=== PATIENT | male | born 2000 | race Caucasian/White ===

== ENCOUNTER → 2023-11-10 14:47 | Outpatient (REF) | payer OTHER, SELFPAY | LOC: RAD 14:47 | PROVIDERS: ATTENDING PHYSICIAN Physician Assistant | DX: R10.30 Lower abdominal pain, unspecified (principal); R45.1 Restlessness and agitation | CPT/HCPCS: 76700 ==

== ENCOUNTER 2023-11-24 23:12 | Inpatient (IN) | payer OTHER, SELFPAY ==
[2023-11-24 19:02] VITALS: BP 149/100
--- NOTE | 2023-11-24 19:56 | ED.GENMED ---
History of Present Illness
General
Chief Complaint: Change in Mental Status
Source: records, family and previous radiology exam
Exam Limitations: non verbal-adult and altered mental status
Time Seen by Provider: 11/24/23 19:43
Nursing documentation reviewed up to this point in time: agreed with
History of Present Illness
History of Present Illness:
23-year-old male presents for evaluation agitation
Is nonverbal has autism which started old one of the newer diabetes/weight loss meds for weight loss he was doing well then developed GI symptoms, or stopped had an outpatient ultrasound because he could not fit in the CAT scan or due to his weight
showed a gallstone apparently saw surgeon and no surgery was scheduled, has been eating, he has been sweating, mom gave him Abilify and Thorazine today to calm him down, also has a fungal infection in his groin possibly a UTI no fevers,
Past History
Past History
ED Past Medical History: Other (Autism)
ED Past Surgical History: None
Social History
Tobacco: Non-smoker
Alcohol: None
Drug: None
Personal: Single
Living: with family
Employment: Not employed
Review of Systems
Review of Systems
Other source history: family
All Other Systems: Not applicable
Constitutional: Reports weight loss; Denies fever
ABD/GI: Reports abdominal pain (??); Denies constipated
Phy Exam
Physical Exam
Physical Exam:
Physical Exam
General: Large statured special-needs male calm walking in the room
Neck: Sweat on his forehead, no tongue bite
Heart: Tachycardic
Lungs: no acute respiratory distress. clear bilaterally
Abdomen: Obese no guarding or reviewed
Neuro: Ambulating nonverbal
Skin:
Psychiatric: Unable to assess
Extremities: no edema.
Course
Orders/Labs/Results
Orders:
Orders
11/24/23 19:52
Urinalysis Reflex To Culture Urgent
Diazepam [Valium] 5 mg PO NOW STA
11/24/23 20:29
Complete Blood Count/With Diff Urgent
Comprehensive Metabolic Panel Urgent
Lipase Urgent
Blood Culture Q30M
AL Source: Blood/Venous
Specimen Description:
11/24/23 20:30
Lactic Acid Urgent
11/24/23 21:04
Blood Culture Q30M
AL Source: Blood/Venous
Specimen Description:
Abnormal Lab Results
11/24/23 11/24/23
20:29 20:30
Plt Count 401 H 10^3/uL
(130-400)
Absolute Monos (auto) 1.1 H 10^3/uL
(0.1-0.6)
Monocytes % 10.3 H %
(1.7-9.3)
Chloride 109 H mmol/L
(98-107)
Carbon Dioxide 18 L mmol/L
(22-30)
Glucose 107 H mg/dl
(70-99)
Lactic Acid 2.4 H mmol/L
(0.7-2.0)
Calcium 10.3 H mg/dl
(8.4-10.2)
Total Bilirubin 1.4 H mg/dl
(0.2-1.3)
AST 65 H U/L
(17-59)
ALT 92 H U/L
(0-50)
11/24/23 20:29
11/24/23 20:29
Vital Signs
Initial and Last Documented VS:
Initial Vital Signs
Temp Pulse Resp BP Pulse Ox
97.5 F 127 22 149/100 100
11/24/23 19:02 11/24/23 19:02 11/24/23 19:02 11/24/23 19:02 11/24/23 19:02
Last Documented Vital Signs
Temp Pulse Resp BP Pulse Ox
97.5 F 127 22 149/100 100
11/24/23 19:02 11/24/23 19:02 11/24/23 19:02 11/24/23 19:02 11/24/23 19:02
MDM/Problems Addressed
Differential Diagnosis Includes:
Infection dehydration medication effect perhaps biliary prep UTI primary psychiatric alert
MDM/Problems Addressed:
Agitation
Chronic conditions affecting care: Psychiatric illness
Acute Exacerbation and/or Progression of Chronic Illness: Psychiatric illness
*Radiology
Radiology exam reviewed: radiology read reviewed
*Pulse Oximetry
Patient hypoxic: no
*Critical Care Note
Total Time (30-74mins, 75-104mins- exclusive of procedures): Not Applicable
Update Note
Update Note:
Update, labs noted including LFTs lactic acid Sohail coffman will try to get a rectal temp and look at his groin rash
Rectal temp 99.9 he is sweaty, do not believe repeating his ultrasound treat management, cultures have been sent, he pulled his IV out, mother states he is not at his baseline, apparently too large for CT scanner
ED Attending Note
-
Portions of this chart may have been created with voice recognition software.� Occasional wrong word or��sound alike� substitutions may have occurred due to the inherent limitations of voice recognition software.
Discharge Plan
Departure
Prescriptions:
No Action
Prozac
7 ml PO DAILY
lorazepam 1 MG tablet
1 mg PO DAILYPRN PRN (Reason: anxiety)
albuterol sulfate [Albuterol Sulfate HFA] 18 GM HFA aerosol inhaler
2 puff inhalation PRN PRN (Reason: as directed)
fluticasone propionate 1 SPRAY spray,suspension
2 spray intranasal DAILYPRN PRN (Reason: as directed)
aripiprazole 2 MG tablet
2 mg PO DAILY
pediatric multivitamin no.17 1 TABLET tablet,chewable
1 tab PO DAILY
doxycycline monohydrate 25 MG/5 ML suspension for reconstitution
100 mg PO Q12 Qty: 280 0RF
Referrals:
Rolando Prieto MD [Family Provider] -
Interventions
Interventions:
*Risk Screen - Suicide Last Done: 11/24/23 19:02
*General Assessment Last Done: 11/24/23 19:02
*Neglect/Abuse Screening Last Done: 11/24/23 19:02
ED- Fall Risk Assessment Last Done: 11/24/23 21:26
ED- Neurological Assessment Last Done: 11/24/23 21:26
ED- Cardiac Assessment Last Done: 11/24/23 21:26
ED Swallowing Screen Last Done: 11/24/23 21:28
Discharge Date and Time
Print Language: [place] CITIZEN
[2023-11-24] MEDS: VALIUM 5 MG PO (19:59)
[2023-11-24 20:35] LABS: % Basophils 1.1 % (0-2); % Eosinophils 0.9 % (0-6); % Immature Granulocytes 0.4 % (0-0.5); % Lymphocytes 30.5 % (20.5-51.1); % Monocytes 10.3 % (1.7-9.3); % Neutrophils 56.8 % (42.2-75.2); Absolute Basophils 0.1 10^3/uL (0-0.2); Absolute Eosinophils 0.1 10^3/uL (0-0.7); Absolute Lymphocytes 3.2 10^3/uL (1.2-3.4); Absolute Monocytes 1.1 10^3/uL (0.1-0.6); Hematocrit 46.2 % (39.0-52.0); Hemoglobin 16.4 g/dL (13.0-18.0); Mean Corp Hgb Conc. 35.5 g/dL (33.0-37.0); Mean Corpuscular Hgb 30.6 pg (27.0-31.0); Mean Corpuscular Volume 86.2 fL (80.0-94.0); Mean Platelet Volume 9.4 fL (7.4-10.4); Nucleated Red Blood Cells % 0 % (-); Platelet Count 401 10^3/uL (130-400); Red Blood Cell Count 5.36 10^6/uL (4.70-6.10); Red Cell Dist. Width 13.6 % (11.5-14.5); White Blood Cell Count 10.5 10^3/uL (4.8-10.8)
[2023-11-24 20:48] LABS: Lactic Acid 2.4 mmol/L (0.7-2.0)
[2023-11-24 20:52] LABS: ALT (SGPT) 92 U/L (0-50); AST (SGOT) 65 U/L (17-59); Albumin 4.8 g/dl (3.5-5.0); Alkaline Phosphatase 79 U/L (38-126); Blood Urea Nitrogen 10 mg/dl (9-20); Calcium 10.3 mg/dl (8.4-10.2); Carbon Dioxide 18 mmol/L (22-30); Chloride 109 mmol/L (98-107); Glucose 107 mg/dl (70-99); Potassium 4.8 mmol/L (3.5-5.1); Sodium 139 mmol/L (135-145); Total Bilirubin 1.4 mg/dl (0.2-1.3); Total Protein 7.8 g/dl (6.3-8.2); eGFR > 60.00
[2023-11-24 21:33] LABS: Lipase 59 U/L (23-300)
--- NOTE | 2023-11-24 22:12 | HPS.HSE ---
Family Physician
-
Family Physician: Rolando Prieto
Chief Complaint
-
Nausea, not eating, diaphoresis, groin rash, agitation
History of Present Illness
23-year-old autistic male who reportedly started weight loss medication Wegovy x 7 doses last dose was 10/28/2023 he then developed GI symptoms of nausea, not eating, diaphoresis. He saw surgery was scheduled for CT but was unable to fit in the CAT
scan machine so had ultrasound showing a gallstone. His mother reported he was very agitated gave him Abilify and his Thorazine today to help calm him down. He normally eats very well but is not eating his safe foods or his snacks. He is also not
been interested in his typical show's and music that he watches. He also has fungal infection in his groin which she was prescribed Diflucan 150 mg daily along with topical clotrimazole. His mother states he finished 1 week of Augmentin due to
UTI. She reports normally when he has a UTI he avoids going to the bathroom and asked how she knows past medical history of nonverbal autism, sensory disorder, seizures, asthma, pneumonia, gastroenteritis, anxiety
Medical History
Past Medical History
Past Medical History: Reports Other
Additional Past Medical History:
Severe nonverbal autism/ sensory disorder
anxiety
seizures
asthma
pneumonia
gastroenteritis,
Morbid obesity
Past Surgical History: Reports Other
Additional Past Surgical History:
Tonsillectomy/adenoidectomy
Social History
Tobacco: Non-smoker
Alcohol: None
Drug: None
Personal:
Living: With Family
Employment: Disabled
Family History
Family History: Not pertinent
Allergies / Home Medications
Allergies reflects when Allergies were last updated in [facility].
Home Medications with original date entered in [facility]
Allergy/Medication List:
Allergies
Allergy/AdvReac Type Severity Reaction Status Date / Time
seasonal and food sensitivity Allergy Pharmacy Uncoded 02/03/19 14:11
to Review
Home Medications
albuterol sulfate 90 mcg/actuation aerosol inhaler 1 puff inhalation R Q4HPRN PRN sob/wheezing 11/24/23
aripiprazole 30 mg tablet 30 mg PO DAILY 11/24/23
chlorpromazine 25 mg tablet 25 mg PO TIDPRN PRN agitation/anxiety 11/24/23
fluconazole 150 mg tablet 150 mg PO WEEKLY 11/24/23
fluoxetine 20 mg/5 mL (4 mg/mL) oral solution 20 mg PO HS 11/24/23
magnesium 250 mg tablet 250 mg PO HS 11/24/23
melatonin 3 mg tablet 6 mg PO HS 11/24/23
semaglutide (weight loss) 0.25 mg/0.5 mL subcutaneous pen injector (Wegovy) 0.25 mg SC WEEKLY 11/24/23
Review of Systems
-
History Source: Family (Mother at bedside)
A 12 point ROS was completed and negative except as noted: Yes
Constitutional: Reports Fever, Chills and Other (Diaphoresis, agitation)
Respiratory: Denies Cough
Cardiac: Reports Diaphoresis
Abdomen/GI: Reports Nausea; Denies Vomiting or Diarrhea
: Denies Dysuria, Frequency or Incontinence
Musculoskeletal: Denies Joint Pain or Edema
Skin: Reports Rash (Fungal groin rash left and right extending to thighs)
Neurological: Denies Dizzy
Endocrine: Reports No Symptoms
Hematologic/Lymphatic: Reports No Symptoms
Psych: Reports Other (Agitated)
Physical Exam
Vital Signs
Vital Signs
Temp Pulse Resp BP Pulse Ox
99.9 F 127 22 149/100 100
11/24/23 22:00 11/24/23 19:02 11/24/23 19:02 11/24/23 19:02 11/24/23 19:02
Physical Exam
Cardiac: S1/S2 and Tachycardia; No Murmur, Rub or Gallop
GI: Normal Bowel Sounds and Other (Protuberant abdomen does not withdrawal to pain)
Rectal: Deferred by Provider
Genito-urinary: Deferred by me
Musculoskeletal: No Clubbing, No Cyanosis and No Edema
Skin: Rash (Fungal groin rash left and right extending to thighs)
Neuro: Awake (Agitated pacing room signing to his mother he wants a car ride) and No Sensory Deficits
Psych: Agitated
Laboratory Results
-
11/24/23 20:29
11/24/23 20:29
Laboratory Results
Lactic Acid 2.4 mmol/L (0.7-2.0) H 11/24/23 20:30
Total Bilirubin 1.4 mg/dl (0.2-1.3) H 11/24/23 20:29
AST 65 U/L (17-59) H 11/24/23 20:29
ALT 92 U/L (0-50) H 11/24/23 20:29
Alkaline Phosphatase 79 U/L (38-126) 11/24/23 20:29
Lipase 59 U/L (23-300) 11/24/23 20:29
Impression/Plan
-
Impression/plan:
Admit to IMU
#Acute biliary colic with acute transaminitis
-WBC 10.5, temp 99.9 F, HR 127, 149/100
-Consult surgery
-IV pain control with morphine
-IV Zofran
-IV vancomycin, IV Zosyn
-IV NSS 1 L given in ER, IV NSS 100 cc/h
-Follow CBC, CMP, blood cultures x 2, lactic acid 2.4
-Check UA AUDITOR SUPERVISOR
-Will check abdominal ultrasound in a.m.
Abdominal ultrasound 11/10/2023 hepatomegaly 19 cm, cholelithiasis no acute cholecystitis. Gallbladder was distended with fluid showing small shadowing calculus approximately 8 mm in diameter
#Severe Nonverbal autism
Patient only signed with mother he is unable to communicate any needs with staff
-Mother to stay with patient
-IM Haldol given 5 mg due to patient agitation unable to get IV at present time
-Consult Psychiatry
-Continue Abilify, Prozac
-Patient takes as needed Thorazine 25 mg
-Mother noted has taken oral Ativan with no results
#Hypertension likely secondary to agitation/pain
149/100
Will give pain control, IV Haldol and monitor
#Fungal groin rash to thigh right > ;left
-May continue Diflucan 150 milligram x 7 days patient started on 11/22/2023
-Apply topical antifungal
#Chronic lactose/gluten intolerance
-Mother does not allow red dye or artificial sweeteners
#Morbidly obese�BMI 62.3(weight 422 lbsper mother height estimate 5.9)
-Patient recently started Wegovy 0.25 mg x 7 doses did stop on 10/28/2023 due to nausea, not eating
DVT prophylaxis
Subcu Lovenox
Full code
[2023-11-24] MEDS: HALDOL 5 MG IM (22:33)
--- NOTE | 2023-11-24 23:05 | W.PN.UPDATE ---
Update Note
Progress Note Update
I could not get any information from the patient as he is autistic and restless
Information gathered by chart review and speaking with mother and the ER staff.
This note serves as an addendum to the H&P by hand molder KAROLINE Lluvia MARTINO
HPI
23M Morbidly obese, mentally disable due to severe autism BIB mother due to AMS from normal routine , agitation and restlessness. Not resposne to Thorazine and Ativan at home per Mother
Recently on Wegovy ( GLP2) for 2 weeks till 10/27 when he developed GI symtoms.
He had US on 11/09 noted Hepatomegaly and cholelithiasis. No findings highly suspicious for acute cholecystitis.
Currently in PO Diflucan and Clotrimazole topical for extensive Rt> Lt groin fungal dermattis for last 2 days
At ER
low grade T
tachycardic
Normotensive
PMHX: Autism, Lactose intolerance
PSHX
None
SHX
Tobacco: Non-smoker
Alcohol: None
Drug: None
Personal: Single
Living: with family
Reviewed VS: 99.9 tachycardic 127 BP 150/100 RR2 POx 100
PE
Gen: morbidly obese , restless , diaphoretic
HEENT: anicteric
Neck: supple
Lungs: limited exam due to restlessness
Cor: tachycardic
Abdomen: obese
TRUCKSMITH: alert , anxious , non verbal
MS: no edema
Psych: limited exam
Data
nl WCC
Plt 401
Cl 109
CO2 18
Cr 1.2
eGFR > 60
LA 2.4
Ca 10.3
TB 1.4
AST 65
ALT 92
Pending UA and pending CXR due to restlessness
BCx sent
11/10/23 US Abdomen Complete/Uppe
1. Suboptimal imaging secondary to patient's inability to remain motionless for the procedure.
2. Allowing for this, no acute intra-abdominal process identified sonographically.
3. Hepatomegaly.
4. Cholelithiasis. No findings highly suspicious for acute cholecystitis.
NO PRIOR hospitalist admission:
ASSESSMENT & PLAN
Loss peripheral line ; ripped off
- another attempt too place peripheral line at ER
Agitated and restlessness s/p IM Haldol 5 mg at ER and IM morphine x1
Unable to place lines due to restlessness yet
Mental disability due to severe autism
- IV Haldol PRN
- IV Ativan PRN - hold for excessive sedation
- Mother to stay with patient in private room
- Psych consult
AMS and restlessness
VERY BROAD DDx DUE TO LIMITED W/U : acute infection ( UTI, PNA, Bilairy infection) vs constipation vs metabolic vs drug interaction
- BCx, UCx, CXR when able
- Peripheral lines when able
- empiric IV Vanco and Zosyn
Abn LFTs , Cholelithiasis. No findings highly suspicious for acute cholecystitis. per 11/10/23 US
- f/u LFts
- repeat US in AM
Morbidly obese
DVT Px: LMWH
Code: Full code
IMU
[2023-11-24] MEDS: MORPHINE SULFATE 4 MG IM (23:27)
[2023-11-25 00:35] VITALS: BP 150/90
[2023-11-25 00:46] VITALS: BP 132/81
[2023-11-25 01:04] VITALS: BMI 68.3
[2023-11-25 01:33] LABS: % Basophils 0.8 % (0-2); % Eosinophils 0.1 % (0-6); % Immature Granulocytes 0.4 % (0-0.5); % Lymphocytes 17.3 % (20.5-51.1); % Monocytes 11.5 % (1.7-9.3); % Neutrophils 69.9 % (42.2-75.2); Absolute Basophils 0.1 10^3/uL (0-0.2); Absolute Immature Granulocytes 0.1 10^3/uL (0-0.05); Absolute Lymphocytes 2.3 10^3/uL (1.2-3.4); Absolute Monocytes 1.5 10^3/uL (0.1-0.6); Absolute Neutrophils 9.3 10^3/uL (1.4-6.5); Hemoglobin 16.1 g/dL (13.0-18.0); Mean Corp Hgb Conc. 35.8 g/dL (33.0-37.0); Mean Corpuscular Hgb 30.7 pg (27.0-31.0); Mean Corpuscular Volume 85.7 fL (80.0-94.0); Mean Platelet Volume 9.5 fL (7.4-10.4); Nucleated Red Blood Cells % 0 % (-); Platelet Count 376 10^3/uL (130-400); Red Blood Cell Count 5.25 10^6/uL (4.70-6.10); Red Cell Dist. Width 13.5 % (11.5-14.5); White Blood Cell Count 13.4 10^3/uL (4.8-10.8)
[2023-11-25] MEDS: HALDOL 1 MG IM (01:52)
[2023-11-25 01:57] LABS: ALT (SGPT) 91 U/L (0-50); AST (SGOT) 57 U/L (17-59); Albumin 4.5 g/dl (3.5-5.0); Alkaline Phosphatase 73 U/L (38-126); Blood Urea Nitrogen 10 mg/dl (9-20); Calcium 10.2 mg/dl (8.4-10.2); Carbon Dioxide 18 mmol/L (22-30); Chloride 112 mmol/L (98-107); Estimated Creatinine Clearance > 125 ml/min; Glucose 85 mg/dl (70-99); HDL Cholesterol 45 mg/dl; LDL Cholesterol, Calculated 83 mg/dl; Potassium 4.2 mmol/L (3.5-5.1); Sodium 143 mmol/L (135-145); Total Bilirubin 1.3 mg/dl (0.2-1.3); Total Cholesterol 143 mg/dl (50-199); Total Protein 7.5 g/dl (6.3-8.2); Triglyceride 77 mg/dl (10-149); Very Low Density Lipoprotein 15 mg/dl (0-30); eGFR > 60.00
[2023-11-25 01:59] LABS: Lactic Acid 1.7 mmol/L (0.7-2.0)
[2023-11-25] MEDS: ATIVAN 1 MG IM (02:33)
[2023-11-25] MEDS: NSS (PRESERVATIVE FREE) 0.5 ML IV ×2 (02:37→06:13)
[2023-11-25 02:39] VITALS: BP 152/94
[2023-11-25 03:19] LABS: Urine Albumin Trace (Neg - Trace); Urine Bilirubin 1+ (Negative); Urine Character Slightly Cloudy (Clear); Urine Color Yellow; Urine Glucose Negative (Negative); Urine Ketone 2+ (Negative); Urine Leukocyte Trace (Negative); Urine Nitrite Negative (Negative); Urine Occult Blood Negative (Negative); Urine Specific Gravity 1.025 (<1.030); Urine Urobilinogen 1+ (Neg - 1+)
--- NOTE | 2023-11-25 03:30 | PTCARENOTE ---
[id number]: Patient received in ICU rm [id number] from ED RN via stretcher. The patient is awake and restless. Follows very simple commands with pt's mother, Vera, assistance. The patient is nonverbal. Patient assisted staff transferring from the stretcher
to BED. Sinus tachy on the monitor.Pt's diaphoretic. Afebrile. Pt's removing his monitor leads. Haldol 1 mg IM administered. IV placement by IV team. AM labs drawn and sent. The patient removed IV. So ART Freitas made aware. IV placement attempted
without success. The patient remained restless and attempting to get OOB. Pt's mother assisting to calm the patient down. Multiple RNs at the bedside for assistance. IM Ativan ordered and administered. Attempted to get EKG without success. Pt
continued to remove his leads. Diminished breath sounds. Hypoactive bowel sounds. The patient ambulated with his mother's assistance to the bathroom. ART Sanabria made aware of lack of IV site for ordered medication administration. Pt has
excoriation/MASD/fungal rash to bilateral inner thighs and groin areas. The pt's mother has at home clotrimazole cream. PRINTING PLATE MAKER made aware. Nystatin ointment and desenex ordered.
[2023-11-25 03:32] LABS: Urine Amorphous Seen
[2023-11-25 03:33] LABS: Urine Bacteria Many (Negative); Urine Red Blood Cell 0-2 /HPF (0-2)
[2023-11-25 04:01] VITALS: BMI 68.3
--- NOTE | 2023-11-25 04:32 | PTCARENOTE ---
Patient is drowsy, but easily arousable. Sinus tachy on the monitor. Pt's mother is at the bedside.
[2023-11-25] MEDS: HALDOL 5 MG IM (05:05)
[2023-11-25] MEDS: ATIVAN 2 MG IM (06:13)
[2023-11-25] MEDS: RISPERDAL M-TAB (ORALLY DISINTEGRATING) 1 MG PO (06:17)
[2023-11-25] MEDS: MIRALAX 17 GRAMS PO (06:50)
--- NOTE | 2023-11-25 07:21 | PTCARENOTE ---
[id number]: Patient is awake and OOB naked. Staff and pt's mother at the bedside. Ambulated with the patient to the bathroom. Pt wants to shower. Assisted the patient back to bed. Pt remains restless and attempting to get OOB. SHELL MACHINE OPERATOR paged to the
bedside. ART Castillo at the bedside. Risperdal m-tab (oral disintegrating) 1 mg and ativan 2 mg IM ordered ans administered. Patient spoke to WAFER ABRADING MACHINE TENDER over the phone regarding @ home medication. The patient removed all monitoring devices. SHELL MACHINE OPERATOR made
aware. Pt remains without an IV. Miralax administered. Pt's diet changed to regular per SHELL MACHINE OPERATOR.
--- NOTE | 2023-11-25 07:30 | PTCARENOTE ---
Assumed care of patient. Spoke w/ pt's mom at length. Pt is currently off monitor (due to pt pulling off) and no IV site (due to pt pulling out). Diet changed to dairy free/gluten free per mother's request. Unable to fully assess pt due to
restlessness and mother asked that pt not be disturbed. Axillary temp obtained. No other VS obtained. Pt appears comfortable and sleeping intermittently. Respirations 18....skin is pink and warm. Call pinto within reach for mom. Room
dark...safe environment confirmed...attempted to decrease noise stimuli. Will continue to monitor and provide emotional support.
[2023-11-25] MEDS: MIRALAX PO (08:53)
--- NOTE | 2023-11-25 08:59 | CS.PSYCHR ---
Consult Summary - Psychiatry
-
Psychiatry consult for management of agitation. 23 yo male with nonverbal autism and anxiety admitted 11/24/2023 for nausea, not eating, and diaphoresis. Gallstone seen on imaging. Also was recently on Wegovy for weight loss. Needs treatment for UTI.
Agitation was extremely severe last night resulting in need for numerous PRNs including Haldol, Ativan, Morphine, SL Risperdal and Valium (see chart for dosages). Mom is at bedside and describes him as a 'aury bear toddler' at baseline. Case
discussed with nursing. Patient has been calm so far this morning but is now starting to get agitated again. Very focused on going on a car ride with his mom who he signs with.
Qtc 430 today
MSE- obese, nonverbal, signing he wants a car ride to his mom. Restless, starting to get increasingly agitated. nude but covered with bedsheets
Past psych- non verbal autism and anxiety, sensory disorder. He sees a psychiatrist at [facility]. he is prescribed abilify 30mg daily, prozac 20mg HS, melatonin 6mg HS and thorazine 25mg TID PRN agitation/anxiety. Ativan was stopped 4-5
months ago due to poor response. Trial of Risperdal resulted in increased agitation and heart rate
PMH- UTI, fungal groin infection, obesity, seizures, asthma, h/o PNA, gastroenteritis
Social- lives with family
A/P- 23 yo male with history noted above. Agitation likely related to pain/discomfort and inability to verbalize. Will do a now trial of Zydis 5mg to see how he responds and then adjust PRN regimen. Mom will stay with patient which will help with
agitation/redirection. If high doses of antipsychotic medications are needed, will continue EKG Qtc monitoring. Psychiatry will follow.
--- NOTE | 2023-11-25 09:18 | W.PN.HOSP.TC ---
Today's Communication/Plan
-
see bold
Assessment / Plan
Assessment / Plan
HPI: 23-year-old autistic male who reportedly started weight loss medication Wegovy x 7 doses last dose was 10/28/2023 he then developed GI symptoms of nausea, not eating, diaphoresis. He saw surgery was scheduled for CT but was unable to fit in the
CAT scan machine so had ultrasound showing a gallstone. His mother reported he was very agitated gave him Abilify and his Thorazine today to help calm him down. He normally eats very well but is not eating his safe foods or his snacks. He is also
not been interested in his typical show's and music that he watches. He also has fungal infection in his groin which she was prescribed Diflucan 150 mg daily along with topical clotrimazole. His mother states he finished 1 week of Augmentin due to
UTI. She reports normally when he has a UTI he avoids going to the bathroom and asked how she knows past medical history of nonverbal autism, sensory disorder, seizures, asthma, pneumonia, gastroenteritis, anxiety
#Acute biliary colic with acute transaminitis
Patient with low-grade fever, Tmax 99.9, with a leukocytosis today
He is refusing IV access
Treat with cefdinir and Flagyl for now
Repeat ultrasound ordered, general surgery consulted
Abdominal ultrasound 11/10/2023 hepatomegaly 19 cm, cholelithiasis no acute cholecystitis. Gallbladder was distended with fluid showing small shadowing calculus approximately 8 mm in diameter
#1 out of 2 blood cultures growing gram-positive cocci
Possibly contaminant
Start oral doxycycline, follow-up on blood cultures
#Severe Nonverbal autism
Presenting symptom was agitation
Patient only signed with mother he is unable to communicate any needs with staff
Appreciate psychiatry input, continue medication adjustments as per psychiatry
# Elevated blood pressure likely secondary to agitation/pain
Continue medication adjustments as per psychiatry
#Fungal groin rash to thigh right > ;left
-May continue Diflucan 150 milligram x 7 days patient started on 11/22/2023
-Apply topical antifungal
#Chronic lactose/gluten intolerance
-Mother does not allow red dye or artificial sweeteners
#Morbidly obese�BMI 62.3(weight 422 lbsper mother height estimate 5.9)
-Patient recently started Wegovy 0.25 mg x 7 doses did stop on 10/28/2023 due to nausea, not eating
DVT prophylaxis�subcu Lovenox
Full code
Total time spent to see the patient on the floor, examine the patient, review data and lab results, discuss treatment plan with patient, nursing staff around 55 minutes.
Physical Exam
General: Morbidly obese, no acute distress
HEENT: Normocephalic, Atraumatic,
Respiratory: Clear to Auscultation bilaterally
Cardiac: Normal S1/S2, Regular Rate and Rhythm
GI: Soft, Nontender, Nondistended, Normal Bowel Sounds
Extremities: No Clubbing, Cyanosis, or Edema
Psych: Severe intermittent agitation
Derm: No Visible lesions
Anticipated Discharge: > 48 hours
Subjective/Interval History
-
Date of Service: November 25, 2023
Patient has been up all night per nursing staff. He finally fell asleep. No fever, no vomiting.
Objective Data
-
Labs:
Laboratory Results
11/25/23
01:23
WBC 13.4 H
Hgb 16.1
Hct 45.0
Plt Count 376
Sodium 143
Potassium 4.2
Chloride 112 H
Carbon Dioxide 18 L
BUN 10
Creatinine 1.4 H
Glucose 85
Calcium 10.2
Total Bilirubin 1.3
AST 57
ALT 91 H
Alkaline Phosphatase 73
Vital Signs:
Vital Signs
Temp Pulse Resp BP Pulse Ox
98.5 F 133 25 152/94 100
11/25/23 07:18 11/25/23 05:30 11/25/23 05:30 11/25/23 02:39 11/25/23 03:30
[2023-11-25] MEDS: DESENEX/MITRAZOL/ZEASORB 1 APPLIC TOPICAL (09:44)
[2023-11-25] MEDS: MYCOSTATIN CREAM 1 APPLIC TOPICAL ×2 (09:45→20:55)
--- NOTE | 2023-11-25 10:15 | PTCARENOTE ---
Pt increasingly agitated per mom. Zydis SL given without issue after pt seen by . ECG done prior to administration of med.
[2023-11-25] MEDS: ZYPREXA ZYDIS (ORALLY DISINTEGRATING) 5 MG PO ×2 (10:16→15:28)
--- NOTE | 2023-11-25 11:00 | PTCARENOTE ---
Pt currently sleeping after SL zydis... made aware.
--- NOTE | 2023-11-25 12:00 | PTCARENOTE ---
Spoke w/ about plan of care. Abx changed to po. Pt sleeping w/o issue at present. Will continue to monitor.
[2023-11-25] MEDS: OMNICEF 300 MG PO (12:33)
[2023-11-25] MEDS: FLAGYL 500 MG PO (12:35)
[2023-11-25 14:05] VITALS: BMI 68.3
[2023-11-25] MEDS: ATIVAN 4 MG IM (14:17)
--- NOTE | 2023-11-25 15:30 | PTCARENOTE ---
Ativan IM and SL zyprexa given for agitation. Mom is concerned w/ pt's lack of sleeping and debating taking him home. MD aware. Continuing to provide emotional support.
--- NOTE | 2023-11-25 16:30 | PTCARENOTE ---
Pt sleeping w/ mom at bedside w/o issue.
[2023-11-25] MEDS: FLAGYL PO ×2 (20:52→20:55)
[2023-11-25] MEDS: DESENEX/MITRAZOL/ZEASORB TOPICAL ×2 (20:52→20:55)
[2023-11-25] MEDS: VIBRAMYCIN 100 MG PO (20:53)
[2023-11-25] MEDS: OMNICEF PO ×2 (20:54→20:55)
--- NOTE | 2023-11-25 23:45 | PTCARENOTE ---
1899: Assumed care of the patient. Pt noted to be asleep. RR 16. Pt's not on monitor due to leads removal. Pt's mother at the bedside.
2049: Pt remains asleep. Pt's mother refused medications as to allow the patient to sleep. Teaching provided on antibiotic needs. Clear breath sounds on assessment. + BS. Pt's mother attempted to administer pt's Vibramycin, but the patient spat the
medication out.
2229: Pt's mother declined the pt's medication as to allow him to sleep at this time. Pt's awake and restless but settles easily.
--- NOTE | 2023-11-26 00:57 | PTCARENOTE ---
Pt reassessed. Patient remains asleep. RR 14 with even chest rise. No labored breathing. Pt's mother is at the bedside.
[2023-11-26] MEDS: FLAGYL 500 MG PO (03:21)
[2023-11-26 03:23] VITALS: BP 135/82
[2023-11-26] MEDS: ZYPREXA ZYDIS (ORALLY DISINTEGRATING) 5 MG PO (04:02)
[2023-11-26] MEDS: ATIVAN 4 MG IM (04:11)
[2023-11-26] MEDS: NSS (PRESERVATIVE FREE) 0.5 ML IV (04:12)
[2023-11-26 04:23] VITALS: BMI 62.2
[2023-11-26 04:24] LABS: ALT (SGPT) 86 U/L (0-50); AST (SGOT) 86 U/L (17-59); Albumin 4.1 g/dl (3.5-5.0); Alkaline Phosphatase 64 U/L (38-126); Blood Urea Nitrogen 9 mg/dl (9-20); Carbon Dioxide 21 mmol/L (22-30); Chloride 109 mmol/L (98-107); Estimated Creatinine Clearance > 125 ml/min; Glucose 83 mg/dl (70-99); Magnesium 2.1 mg/dl (1.6-2.3); Potassium 4.1 mmol/L (3.5-5.1); Sodium 141 mmol/L (135-145); Total Bilirubin 2.2 mg/dl (0.2-1.3); Total Protein 6.8 g/dl (6.3-8.2); eGFR > 60.00
--- NOTE | 2023-11-26 04:57 | PTCARENOTE ---
Patient is awake and restless. Patient ambulated to the bathroom with mother x3 without voiding. Pt is asking for food. NPO status explained to the mother for abdominal ultrasound. The patient sat on the couch then back to bed, then the bathroom.
Pt's mother asked for prn zyprexa. Zyprexa administered without effect. PRN ativan administered IM. The patient settled. Pt tolerated lab draw but was restless. Chemistry sent. Unable to draw remainder of the labs. Scheduled medication administered.
The patient's mother voiced concerns regarding the pt's diagnosis and reason for behavior. Pt's mother stated that 'I just want to know what is causing this. I feel like no one is giving me a definitive answer. Is it UTI or not? I just want
answers.' Teaching provided on UTI and prevention methods. Explained to the patient's mother current treatment plans with ordered antibiotics. Pt's mother encouraged to encourage the patient to take scheduled abx while when they are due. The mother
is agreeable. supportive measures provided. Bed in the lowest position. Safety measures remain.
[2023-11-26] MEDS: HALDOL 5 MG IM (05:46)
--- NOTE | 2023-11-26 06:24 | PTCARENOTE ---
[id number]: The patient's mother rang due to pt being restless and getting OOB. Pt's mother asked for prn medication to calm pt. Explained to the pt's mother that Haldol is the medication available to administer and she's agreeable. The patient
remained restless post medication administration. We ambulated the bathroom 4 times and back to bed.
[2023-11-26] MEDS: MIRALAX PO (07:44)
--- NOTE | 2023-11-26 07:45 | PTCARENOTE ---
Pt mildly agitated but verbally directable by mom and staff. U/S abdomen completed this am. Pt agreeable to take oral omnicef. Unable to fully assess due to pt compliance. Call pinto within reach. Emotional support provided. Will continue to
monitor.
[2023-11-26] MEDS: DESENEX/MITRAZOL/ZEASORB 1 APPLIC TOPICAL (07:50)
[2023-11-26] MEDS: MYCOSTATIN CREAM 1 APPLIC TOPICAL (07:51)
[2023-11-26] MEDS: VIBRAMYCIN PO (07:52)
[2023-11-26] MEDS: OMNICEF 300 MG PO (07:52)
--- NOTE | 2023-11-26 09:15 | W.PN.HOSP.TC ---
Today's Communication/Plan
-
Discharge today
Assessment / Plan
Assessment / Plan
HPI: 23-year-old autistic male who reportedly started weight loss medication Wegovy x 7 doses last dose was 10/28/2023 he then developed GI symptoms of nausea, not eating, diaphoresis. He saw surgery was scheduled for CT but was unable to fit in the
CAT scan machine so had ultrasound showing a gallstone. His mother reported he was very agitated gave him Abilify and his Thorazine today to help calm him down. He normally eats very well but is not eating his safe foods or his snacks. He is also
not been interested in his typical show's and music that he watches. He also has fungal infection in his groin which she was prescribed Diflucan 150 mg daily along with topical clotrimazole. His mother states he finished 1 week of Augmentin due to
UTI. She reports normally when he has a UTI he avoids going to the bathroom and asked how she knows past medical history of nonverbal autism, sensory disorder, seizures, asthma, pneumonia, gastroenteritis, anxiety
# Cholelithiasis with mildly elevated liver function test
Patient with low-grade fever, Tmax 99.9, with a leukocytosis 11/24
Abdominal ultrasound 11/25 negative for cholecystitis
Discontinue cefdinir/Flagyl
Medically stable for discharge
Follow-up with PCP in 1 week
#1 out of 2 blood cultures contaminated
Stop doxycycline
#Severe Nonverbal autism
Presenting symptom was agitation
Patient only signed with mother he is unable to communicate any needs with staff
Appreciate psychiatry input, continue medication adjustments as per psychiatry
Psychiatry recommends resuming home medications upon discharge, follow-up with his usual psychiatrist in 2-3 days
# Elevated blood pressure likely secondary to agitation/pain
Improved, blood pressure 135/82 this morning
#Fungal groin rash to thigh right > ;left
-May continue Diflucan 150 milligram x 7 days patient started on 11/22/2023
-Apply topical antifungal -prescription sent
#Chronic lactose/gluten intolerance
-Mother does not allow red dye or artificial sweeteners
#Morbidly obese�BMI 62.3(weight 422 lbsper mother height estimate 5.9)
-Patient recently started Wegovy 0.25 mg x 7 doses did stop on 10/28/2023 due to nausea, not eating
DVT prophylaxis�subcu Lovenox
Full code
Physical Exam
General: Morbidly obese, no acute distress
HEENT: Normocephalic, Atraumatic,
Respiratory: Clear to Auscultation bilaterally
Cardiac: Normal S1/S2, Regular Rate and Rhythm
GI: Soft, Nontender, Nondistended, Normal Bowel Sounds
Extremities: No Clubbing, Cyanosis, or Edema
Psych: Severe intermittent agitation
Derm: No Visible lesions
Anticipated Discharge: Today
Subjective/Interval History
-
Date of Service: November 26, 2023
Patient currently sleeping. No fever, no vomiting.
Objective Data
-
Labs:
Laboratory Results
11/26/23 11/26/23
03:51 06:00
WBC Pending
Hgb Pending
Hct Pending
Plt Count Pending
Sodium 141
Potassium 4.1
Chloride 109 H
Carbon Dioxide 21 L
BUN 9
Creatinine 0.9
Glucose 83
Calcium 10.0
Total Bilirubin 2.2 H D
AST 86 H
ALT 86 H
Alkaline Phosphatase 64
Vital Signs:
Vital Signs
Temp Pulse Resp BP Pulse Ox
98.6 F 135 27 135/82 100
11/26/23 07:30 11/25/23 05:35 11/25/23 05:35 11/26/23 03:23 11/25/23 03:30
I&O
06/22/24 06/23/24 06/24/24
06:59 06:59 06:59
Intake Total 960 / 960
Output Total 300 / 300
Balance 660 / 660
--- NOTE | 2023-11-26 11:21 | W.DCSUMMARY ---
Discharge Summary
Discharge Data
Date of Admission: 11/24/23
Date of Discharge: 11/26/23
-
Pending Results: No
Hospital Course
Discharge diagnosis:
Cholelithiasis with mildly elevated liver function test
Contaminated blood cultures
Severe nonverbal autism with agitation
Elevated blood pressure due to agitation
Fungal groin rash
Chronic lactose intolerance
Morbidly obese, with a body mass index of 62.3
Consults: Psychiatry
Abd US:
1. Cholelithiasis.
2. No secondary sonographic findings to suggest acute cholecystitis.
3. No bile duct dilatation.
4. Hepatic steatosis.
Hospital course:
23-year-old male with a past medical history of morbid obesity, severe nonverbal autism, lactose intolerance, and cholelithiasis was brought in by his mother for severe agitation. Patient was found to have mildly elevated LFTs, AST was 65, ALT 92.
He did receive cefdinir and Flagyl. Repeat ultrasound shows cholelithiasis, no acute cholecystitis. His antibiotics were discontinued. His LFTs were trended, and remained about the same.
Patient used to be on Wegovy, but stopped on 10/28/2023 due to GI symptoms. It is unclear if he actually has abdominal pain. He appeared comfortable while in the hospital.
Patient was seen in conjunction with psychiatry for his severe agitation. He received Ativan 4 mg IM prn, and Zyprexa 5 mg prn for his agitation. His agitation improved. Psychiatry recommends he continue his current home medications upon
discharge.
Patient had contaminated blood cultures. 1 out of 2 bottles grew out coag negative staph.
Patient had a fungal rash in his groin upon admission. He is on fluconazole 150 mg p.o. weekly. Miconazole powder was added.
Patient's agitation improved, and his mother wanted to take him home. He is discharged home in stable condition. He needs to follow-up with psychiatry in the office in 2-3 days, and his primary care doctor in 1 week.
Disposition: Home self-care
Discharge planning: Required 38 minutes
Discharge Plan
-
Patient Disposition: Home (Routine Discharge)
Discharge Diagnosis/Procedures: Agitation, cholelithiasis, mildly elevated liver function test, contaminated blood cultures, severe nonverbal autism, elevated blood pressure due to agitation
Condition: Fair
Diet: Low Fat and Low Cholesterol
Activity: As tolerated
Activity Restrictions/Additional Instructions:
Please follow-up with your psychiatrist in 2-3 days.
Follow-up with your primary care doctor in 1 week.
Referrals:
Rolando Prieto MD [Family Provider] - in one week
Prescriptions:
New
miconazole nitrate [Miconazorb AF] 2 % Powder
1 applic topical BID 7 Days Qty: 85 0RF
Continued
fluoxetine 20 mg/5 mL (4 mg/mL) solution
20 mg PO HS
fluconazole 150 mg tablet
150 mg PO WEEKLY
melatonin 3 mg Tablet
6 mg PO HS
chlorpromazine 25 mg tablet
25 mg PO TIDPRN PRN (Reason: agitation/anxiety)
magnesium 250 mg Tablet
250 mg PO HS
albuterol sulfate 90 mcg/actuation HFA aerosol inhaler
1 puff INHALATION R Q4HPRN PRN (Reason: sob/wheezing)
aripiprazole 30 mg tablet
30 mg PO DAILY
Discontinued
Wegovy 0.25 mg/0.5 mL pen injector
0.25 mg SC WEEKLY
Discharge Orders:
Discharge Patient (As Directed); Ordered 11/26/23
Ordered By: Francois Saenz
Discharge Date and Time
Discharge Date/Time: 11/26/23 11:53
Print Language: NAURUAN
--- NOTE | 2023-11-26 11:45 | PTCARENOTE ---
D/C instructions reviewed w/ pt's mother. All questions answered. Pt to d/c to home w/ mom.
== END 2023-11-26 11:53 | disposition home or self-care (01) | DRG 445 ==
LOC: ICU 23:12
PROVIDERS: Clinical Nurse Specialist Family Health; ADMITTING PHYSICIAN Internal Medicine; ATTENDING PHYSICIAN Family Medicine; CONSULT PHYSICIAN Psychiatry & Neurology Psychiatry; EMERGENCY PHYSICIAN Emergency Medicine; FAMILY PHYSICIAN Family Medicine
DX: K80.20 Calculus of gallbladder without cholecystitis without obstruction (principal); F84.0 Autistic disorder; Z68.44 Body mass index [BMI] 60.0-69.9, adult; E66.01 Morbid (severe) obesity due to excess calories; E73.9 Lactose intolerance, unspecified; B35.6 Tinea cruris
CPT/HCPCS: 51798; 76700; 80053; 80061; 81003; 81015; 83605; 83690; 83735; 85025; 87040; 87086; 87150; 87205; 93005; 96372; 99284

== ENCOUNTER 2024-10-08 08:18 | Inpatient (IN) | payer OTHER, SELFPAY ==
[2024-10-07] MEDS: SAPHRIS 10 MG SL (16:46)
[2024-10-07] MEDS: HALDOL 5 MG IM (16:52)
--- NOTE | 2024-10-07 17:14 | ED.GENMED ---
History of Present Illness
General
Chief Complaint: Anxiety
Source: family (Mom and dad were at the bedside) and ambulance crew
Time Seen by Provider: 10/07/24 16:43
Nursing documentation reviewed up to this point in time: agreed with
History of Present Illness
History of Present Illness:
The patient is a morbidly obese 24-year-old nonverbal autistic man who lives with his mother who was brought in by paramedics after being acutely agitated and violent today with his mother at home. Mom reports that over the last week, he seems more
agitated and is not doing his normally scheduled activities such as showering. Mom reports he generally likes to take car rides but does not want to go into the car. Mom reports that he generally is cooperative and calm, so him being agitated and
violent today is highly unusual. She reports he gets this way when something is 'wrong' and hurting him. Mom reports that the patient has a history of a gallstone and urinary tract infections. She is worried there is some going on causing him to
act this way. Unfortunately, patient is unable to provide any history. He arrives extremely agitated and thrashing around. Mom reports that he does not really respond to Ativan. She reports that he takes a large amount of sedation to calm him
down. She reports he did not fall down today or hurt himself as far she knows. Mom reports that the only symptom she has noticed is constipation. Mom reports he had a small bowel movement earlier today. She reports he had a normal bowel meant
about 2 to 3 days ago. She denies any vomiting or fever.
Past History
Past History
ED Past Medical History: Other (Autism, nonverbal) and Other (Binge eating disorder)
ED Past Surgical History: Tonsilectomy
Social History
Tobacco: Non-smoker
Alcohol: None
Drug: None
Personal: Single
Living: with family
Employment: Not employed
Family History
Family History: Other
Review of Systems
Review of Systems
Allergies reviewed?: Yes
Unable to obtain full review of systems at this time due to: non-verbal
Other source history: family
All Other Systems: Not applicable
Phy Exam
Physical Exam
Physical Exam:
Physical Exam
General: Patient is agitated, keeps trying to get up from chair, beads of sweat on forehead
Neck: supple. no meningeal signs.
Heart: s1/s2 regular rate and rhythm, no murmur. equal radial pulses.
Lungs: no acute respiratory distress. clear bilaterally
Abdomen: Soft throughout. Normal bowel sounds. No areas of localized tenderness. On rectal exam, no impaction
Neuro: alert, gets agitated but is able to be calmed down by family, but then gets very agitated again. Nonfocal
Skin: Sweaty
Psychiatric: Agitated, violent at times
Extremities: no edema. no calf tenderness. negative homans. good distal pulses
Course
Orders/Labs/Results
Orders:
Orders
10/07/24 16:43
Asenapine Sublingual [Saphris] 10 mg SL NOW STA
Asenapine Sublingual [Saphris] 5 mg .ROUTE .STK-MED ONE
10/07/24 16:44
Asenapine Sublingual [Saphris] 5 mg .ROUTE .STK-MED ONE
10/07/24 16:50
Haloperidol Lactate [Haldol] 5 mg IM NOW STA
10/07/24 17:10
Ketamine Concentrate Injection [Ketamine HCl] 400 mg IM NOW STA
10/07/24 17:59
Restraints - Non Violent As Directed
Justification-Patient:: 2-Protective Intervention
Restraint Type-: Four Side Rails
Apply From (date): 10/07/24
Apply from (time): 17:59
Remove (date): 10/08/24
Remove (time): 23:59
10/07/24 18:11
Complete Blood Count/With Diff Urgent
Comprehensive Metabolic Panel Urgent
Lipase Urgent
10/07/24 18:16
Lorazepam [Ativan] 1 mg IV NOW STA
10/07/24 18:17
Lorazepam [Ativan] 2 mg .ROUTE .STK-MED ONE
10/07/24 18:33
Ketamine Concentrate Injection [Ketamine HCl] 500 mg .ROUTE .STK-MED ONE
10/07/24 18:37
Ketamine Concentrate Injection [Ketamine HCl] 200 mg IM NOW STA
10/07/24 19:17
Restraints - Non Violent As Directed
Justification-Patient:: 1-Attempts to remove tube
Restraint Type-: Soft Limb-L&R Wrist/4rail
Apply From (date): 10/07/24
Apply from (time): 19:17
Remove (date): 10/08/24
Remove (time): 23:59
10/07/24 19:19
CR Chest Portable - 1 View Urgent
Comment:
Reason For Exam: acute agitation
Reason Study Needs to be Portable: Unable to Transport
10/07/24 19:27
US Abdomen Complete/Upper Urgent
Comment:
Reason For Exam: abdominal pain, gallstones
10/07/24 20:06
Midazolam HCl [Versed] 5 mg IV NOW STA
10/07/24 20:45
Urinalysis Reflex To Culture Urgent
Date Specimen was Collected: 10/07/24
Time Specimen was Collected: 20:44
Urine Microscopic Reflex Cult Urgent
10/07/24 20:54
Straight cath- Treatment ONCE
10/07/24 21:24
0.9% Sodium Chloride 1000 ml [Nss] 1,000 ml IV BOLUS
10/07/24 21:48
0.9% Sodium Chloride 1000 ml [Nss] 2,000 ml IV BOLUS
10/07/24 23:00
Flush (0.9% Sodium Chloride) [Flush (Nss)] See Dose Instructions IV PER PROTOCOL
Abnormal Lab Results
10/07/24 10/07/24
18:11 20:45
RBC 4.57 L 10^6/uL
(4.70-6.10)
MCH 31.7 H pg
(27.0-31.0)
Abs Immat Gran (auto) 0.1 H 10^3/uL
(0-0.05)
Absolute Neuts (auto) 7.7 H 10^3/uL
(1.4-6.5)
Absolute Monos (auto) 1.2 H 10^3/uL
(0.1-0.6)
Lymphocytes % 15.8 L %
(20.5-51.1)
Monocytes % 11.6 H %
(1.7-9.3)
Chloride 110 H mmol/L
(98-107)
Creatinine 1.6 H mg/dL
(0.7-1.3)
Total Bilirubin 1.9 H mg/dl
(0.2-1.3)
Urine Ketones 3+ A
(Negative)
Ur Occult Blood Reflex 1+ A
(Negative)
Urine Bacteria (Reflex) Few A
(Negative)
Urine Albumin (Reflex) 1+ A
(Neg - Trace)
10/07/24 18:11
10/07/24 18:11
Vital Signs
Initial and Last Documented VS:
Initial Vital Signs
Pulse Resp
87 12
10/07/24 17:59 10/07/24 17:59
Last Documented Vital Signs
Temp Pulse Resp BP Pulse Ox
98.3 F 116 25 148/86 96
10/07/24 18:00 10/07/24 18:32 10/07/24 18:15 10/07/24 18:00 10/07/24 18:21
MDM/Problems Addressed
Differential Diagnosis Includes:
Acute UTI, symptomatic gallbladder disease, acute constipation
MDM/Problems Addressed:
Patient presents with acute agitation, concerning to family that something is hurting him
Chronic conditions affecting care:
Gallstones
Acute Exacerbation and/or Progression of Chronic Illness:
Patient may have acute pain from chronic gallstones
*Radiology
Radiology exam reviewed: preliminary read by ED provider (Chest x-ray read by me. No acute disease) and radiology read reviewed
*Pulse Oximetry
Patient hypoxic: no
*EKG
Interpreted by ED Provider?: NA
*Tentmaker Interpretation
Rate: normal
Interpretation: normal
Rhythm: sinus
*Critical Care Note
Total Time (30-74mins, 75-104mins- exclusive of procedures): Not Applicable (75 minutes of critical care given to patient including reviewing his hospitalization from last November, speaking extensively to the family, multiple attempts of reassessing
his abdominal exam and trying to sedate him to keep him calm)
comment:
I ordered an obstruction series in our emergency department, however, patient was too heavy for our x-ray table. Additionally, I was told that we cannot do a portable abdominal x-ray due to his weight.
I spent extensive time trying to transfer patient to [facility] ED because family requested transfer there for continuity of care. I was also hoping that they could do more testing on a patient with this type of body habitus, however, they adamantly
refused due to his abdominal girth. I also tried to transfer him to [facility], thinking that they may be able to take care of a patient with his body habitus, in the event that the patient may need an MRI or CAT scan. However, [facility] told me that
they were unable to take care of the patient with this type of abdominal girth due to limitations of their CAT scan.
Data Reviewed
Review of Other/Old Records Reveals: Discharge Summary (Discharge summary reviewed from November 2023 when patient was admitted for acute agitation and found of a gallstone)
Source: family
Patient Management
Social determinants of health affecting care: Living situation and Strong social support
Escalation/DeEscalation of care consider admission/obs:
Given that family reports that this behavior is unusual for the patient, decision made to admit the patient for further observation. It is unclear if the gallstone is causing him to have acute agitation.
It is also my hope that general surgery and GI could evaluate the patient further for this gallstone.
ED Attending Note
-
Portions of this chart may have been created with voice recognition software.� Occasional wrong word or��sound alike� substitutions may have occurred due to the inherent limitations of voice recognition software.
Discharge Plan
Departure
Patient Disposition: Admit
Date of Disposition: 10/07/24
Time of Disposition: 21:43
Admit to: Med/Surg
Admit to doctor: Hospitalist
Presentation/result/management discussed w/ accepting MD/DO: Hospitalist
Patient with high blood pressure during this ER visit?: Yes
Condition: Good
Discharge Problem:
Acute alteration in mental status, Gallstone
Prescriptions:
No Action
melatonin 3 mg Tablet
3 mg PO DAILYPRN PRN (Reason: agation)
sennosides [senna] 8.6 mg Tablet
8.6 mg PO DAILYPRN PRN (Reason: constipation)
clonidine HCl 0.1 mg Tablet
0.1 mg PO BID
polyethylene glycol 3350 [Miralax] 17 gram Powder In Packet
17 g PO DAILY
cod liver oil Capsule
1 cap PO DAILY
clonazepam 1 mg Tablet
1 mg PO BID
cyanocobalamin (vitamin B-12) 1,000 mcg Tablet
1,000 mcg PO DAILY
ascorbic acid (vitamin C) [Vitamin C] 500 mg Tablet
500 mg PO DAILY
tamsulosin [Flomax] 0.4 mg Capsule
0.4 mg PO HS
valproic acid (as sodium salt) 250 mg/5 mL Solution
250 mg PO BID@0800,1200
valproic acid (as sodium salt) 250 mg/5 mL Solution
500 mg PO HS
lorazepam 2 mg Tablet
2 mg PO DAILYPRN PRN (Reason: anxiety)
ibuprofen [Advil] 200 mg Tablet
400 mg PO Q8HPRN PRN (Reason: mild pain)
docusate sodium [Colace] 100 mg Capsule
100 mg PO DAILY
folic acid 1 mg Tablet
1 mg PO DAILY
cholecalciferol (vitamin D3) [Vitamin D3] 25 mcg (1,000 unit) Tablet
25 mcg PO DAILY
Referrals:
UNKNOWN - PT DOES,NOT KNOW [Family Provider] -
Interventions
Interventions:
*Risk Screen - Suicide Last Done: 10/07/24 16:46
*General Assessment Last Done: 10/07/24 16:46
*Neglect/Abuse Screening Last Done: 10/07/24 16:46
ED-Psychological Assessment Last Done: 10/07/24 17:00
Discharge Date and Time
Print Language: GAMBIAN
[2024-10-07] MEDS: KETAMINE HCL 400 MG IM (17:18)
[2024-10-07 18:00] VITALS: BP 148/86
[2024-10-07 18:19] LABS: % Basophils 0.6 % (0-2); % Immature Granulocytes 0.5 % (0-0.5); % Lymphocytes 15.8 % (20.5-51.1); % Monocytes 11.6 % (1.7-9.3); % Neutrophils 71.5 % (42.2-75.2); Absolute Basophils 0.1 10^3/uL (0-0.2); Absolute Immature Granulocytes 0.1 10^3/uL (0-0.05); Absolute Lymphocytes 1.7 10^3/uL (1.2-3.4); Absolute Monocytes 1.2 10^3/uL (0.1-0.6); Absolute Neutrophils 7.7 10^3/uL (1.4-6.5); Hematocrit 41.5 % (39.0-52.0); Hemoglobin 14.5 g/dL (13.0-18.0); Mean Corp Hgb Conc. 34.9 g/dL (33.0-37.0); Mean Corpuscular Hgb 31.7 pg (27.0-31.0); Mean Corpuscular Volume 90.8 fL (80.0-94.0); Mean Platelet Volume 9.4 fL (7.4-10.4); Nucleated Red Blood Cells % 0 % (-); Platelet Count 263 10^3/uL (130-400); Red Blood Cell Count 4.57 10^6/uL (4.70-6.10); Red Cell Dist. Width 12.7 % (11.5-14.5); White Blood Cell Count 10.7 10^3/uL (4.8-10.8)
[2024-10-07] MEDS: ATIVAN 1 MG IV (18:19)
[2024-10-07 18:21] VITALS: BMI 72.1
[2024-10-07 18:22] VITALS: BMI 70.3
[2024-10-07] MEDS: KETAMINE HCL 200 MG IM (18:37)
[2024-10-07 18:43] LABS: ALT (SGPT) 31 U/L (0-50); AST (SGOT) 42 U/L (17-59); Albumin 4.1 g/dl (3.5-5.0); Alkaline Phosphatase 56 U/L (38-126); Blood Urea Nitrogen 18 mg/dl (9-20); Calcium 9.6 mg/dl (8.4-10.2); Carbon Dioxide 24 mmol/L (22-30); Chloride 110 mmol/L (98-107); Estimated Creatinine Clearance 111 ml/min; Glucose 84 mg/dl (70-99); Lipase 45 U/L (23-300); Potassium 4.3 mmol/L (3.5-5.1); Sodium 143 mmol/L (135-145); Total Bilirubin 1.9 mg/dl (0.2-1.3); eGFR > 60.00
--- NOTE | 2024-10-07 18:55 | EDRN ---
Delayed entry. Patient was given IM ketamine sitting in a chair. Patient slide off the chair onto the floor. No head strike. Patient was then altagracia lifted into a bed and placed on monitoring equipment.
[2024-10-07] MEDS: VERSED 5 MG IV (20:13)
[2024-10-07 20:57] LABS: Urine Albumin 1+ (Neg - Trace); Urine Bilirubin Negative (Negative); Urine Character Clear (Clear); Urine Color Yellow; Urine Glucose Negative (Negative); Urine Ketone 3+ (Negative); Urine Leukocyte Negative (Negative); Urine Nitrite Negative (Negative); Urine Occult Blood 1+ (Negative); Urine Urobilinogen Negative (Neg - 1+)
[2024-10-07 21:30] LABS: Urine Bacteria Few (Negative); Urine Red Blood Cell 0-2 /HPF (0-2); Urine Squamous Cell 0-2 /LPF (Few); Urine White Cell 0-2 /HPF (0-5)
[2024-10-07] MEDS: NSS 1000 IV (21:48)
[2024-10-07] MEDS: NSS 2000 IV (23:13)
[2024-10-08] VITALS (17 sets, daily range): BP systolic 138–174; BP diastolic 76–103; BMI 61.7
--- NOTE | 2024-10-08 00:11 | HPS.HSE ---
Family Physician
-
Family Physician: NOT KNOW UNKNOWN - PT DOES
Chief Complaint
-
Agitation
History of Present Illness
Patient is a 24y M with PMH significant for morbid obesity and non-verbal autism who presents to ED for evaluation of agitation. History obtained from father at the bedside. Patient lives with his mother who is not currently present. Patient
reportedly had 'cold symptoms' about 2 weeks ago. Since that time he has not been himself. Over the past one week in particular he has become increasingly agitated and occasionally violent. He was brought to the ED this evening for further
evaluation.
In the ED, patient received multiple sedating medications in attempt to calm his agitated state.
He eventually fell asleep after Ativan, Haldol, Saphris and Ketamine. Patient also underwent straight cath in the ED for urine sample - and his agitation seemed to significantly decrease following this.
At the time of my examination, patient is sleeping comfortably.
Medical History
Past Medical History
Past Medical History: Reports Other
Additional Past Medical History:
Non-Verbal Autism
Anxiety
Asthma
Morbid Obesity
IBS-C
Seizure Disorder
Past Surgical History: Reports None
Social History
Tobacco: Non-smoker
Alcohol: None
Drug: None
Living: With Family (Mother)
Family History
Family History: Not pertinent
Allergies / Home Medications
Allergies reflects when Allergies were last updated in [facility].
Home Medications with original date entered in [facility]
Allergy/Medication List:
Allergies
Allergy/AdvReac Type Severity Reaction Status Date / Time
seasonal and food sensitivity Allergy Pharmacy Uncoded 10/07/24 19:39
to Review
Home Medications
melatonin 3 mg tablet 3 mg PO DAILYPRN PRN agation 11/24/23
ascorbic acid (vitamin C) 500 mg tablet (Vitamin C) 500 mg PO DAILY 10/07/24
cholecalciferol (vitamin D3) 25 mcg (1,000 unit) tablet (Vitamin D3) 25 mcg PO DAILY 10/07/24
clonazepam 1 mg tablet 1 mg PO BID 10/07/24
clonidine HCl 0.1 mg tablet 0.1 mg PO BID 10/07/24
cod liver oil 1 cap PO DAILY 10/07/24
cyanocobalamin (vitamin B-12) 1,000 mcg tablet 1,000 mcg PO DAILY 10/07/24
docusate sodium 100 mg capsule (Colace) 100 mg PO DAILY 10/07/24
folic acid 1 mg tablet 1 mg PO DAILY 10/07/24
ibuprofen 200 mg tablet (Advil) 400 mg PO Q8HPRN PRN mild pain 10/07/24
lorazepam 2 mg tablet 2 mg PO DAILYPRN PRN anxiety 10/07/24
polyethylene glycol 3350 17 gram oral powder packet (Miralax) 17 g PO DAILY 10/07/24
sennosides 8.6 mg tablet (senna) 8.6 mg PO DAILYPRN PRN constipation 10/07/24
tamsulosin 0.4 mg capsule (Flomax) 0.4 mg PO HS 10/07/24
valproic acid (as sodium salt) 250 mg/5 mL oral solution 250 mg PO BID@0800,1200 10/07/24
valproic acid (as sodium salt) 250 mg/5 mL oral solution 500 mg PO HS 10/07/24
Review of Systems
-
Unable to obtain full review of systems at this time due to: Patient Non-verbal
History Source: Family (Unable to obtain ROS from patient as he is non-verbal at baseline and currently sedated. Has been agitated recently which typically indicates pain / distress per family.)
Physical Exam
Vital Signs
Vital Signs
Temp Pulse Resp BP Pulse Ox
98.3 F 74 23 148/86 94
10/07/24 18:00 10/07/24 23:30 10/07/24 23:15 10/07/24 18:00 10/07/24 23:30
Physical Exam
General: Other (Obese 24y M currently sleeping / sedated.)
HEENT: Other (Thick neck. MMM.)
Respiratory: Clear; No Wheezes, Rales or Rhonchi
Cardiac: S1/S2 and Regular Rhythm; No Murmur
GI: Soft, Non Tender, Non Distended, Normal Bowel Sounds and Other (No evident tenderness during abdominal exam. No RUQ tenderness or guarding.)
Genito-urinary: Other (Pos suprapubic tenderness / patient response to pressure in this area during exam.)
Neuro: Sedated
Laboratory Results
-
10/07/24 18:11
10/07/24 18:11
Laboratory Results
Total Bilirubin 1.9 mg/dl (0.2-1.3) H 10/07/24 18:11
AST 42 U/L (17-59) 10/07/24 18:11
ALT 31 U/L (0-50) 10/07/24 18:11
Alkaline Phosphatase 56 U/L (38-126) 10/07/24 18:11
Lipase 45 U/L (23-300) 10/07/24 18:11
Impression/Plan
-
A/P: Patient is a 24y M with PMH significant for anxiety, non-verbal autism and morbid obesity who presents to ED for evaluation of increased agitation.
Agitation
Non-Verbal Autism
Anxiety
- Observe overnight for further evaluation and treatment.
- No evident / clear etiology for his agitation on work-up thus far.
- Labs show mild NYDIA and are otherwise unremarkable. UA does not suggest infection.
- US shows gallstone - which has reportedly been present in the past. No GB wall thickening, fluid or other abnormalities.
- ? urinary retention given report of calming following straight cath.
- Bladder scan at present shows > 300 cc urine in bladder.
- Increase tamsulosin to BID.
- Follow bladder scan protocol and straight cath if needed. Would try to avoid [facility] as he is very high risk for traumatic removal.
- Intensify bowel regimen as chronic IBS-C could be contributing to urinary issues.
- Follow for improvement in agitation / mood.
- Continue usual home meds + PRN Ativan, etc as needed for anxiety / agitation control.
Seizure Disorder
- Isolated petit mal seizure reported in his records.
- Takes VPA - but this is likely for mood.
- Check VPA level. Continue current dose for now.
Morbid Obesity due to excess calories
- Affects all aspects of care.
- Some studies / interventions may be limited due to his body habitus.
DVT Prophylaxis: Lovenox
Code Status: Full
[2024-10-08] MEDS: ATIVAN 2 MG IV ×5 (03:48→21:05)
[2024-10-08 04:26] LABS: Hematocrit 40.2 % (39.0-52.0); Hemoglobin 14.1 g/dL (13.0-18.0); Mean Corp Hgb Conc. 35.1 g/dL (33.0-37.0); Mean Corpuscular Hgb 31.8 pg (27.0-31.0); Mean Corpuscular Volume 90.7 fL (80.0-94.0); Mean Platelet Volume 9.6 fL (7.4-10.4); Platelet Count 306 10^3/uL (130-400); Red Blood Cell Count 4.43 10^6/uL (4.70-6.10); Red Cell Dist. Width 12.9 % (11.5-14.5); White Blood Cell Count 14.6 10^3/uL (4.8-10.8)
[2024-10-08 04:31] LABS: Blood Urea Nitrogen 17 mg/dl (9-20); Calcium 9.2 mg/dl (8.4-10.2); Carbon Dioxide 20 mmol/L (22-30); Chloride 113 mmol/L (98-107); Estimated Creatinine Clearance > 125 ml/min; Glucose 86 mg/dl (70-99); Potassium 4.4 mmol/L (3.5-5.1); Sodium 146 mmol/L (135-145); eGFR > 60.00
[2024-10-08] MEDS: HALDOL 2 MG IV (04:37)
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
--- NOTE | 2024-10-08 05:44 | W.PN.UPDATE ---
Update Note
Progress Note Update
Patient is autistic, restless, anxious, constantly trying to get out of bed, pulling out tele packs, IV lines, placed 4 points, IV Haldol given. Patient had voided and PVR of 100cc noted per RN, Family member at the bed side stated, mom is on her
way and will be able to calm patient.
Mom at bedside. patient continuos to be restless, agitated, diaphoretic, anxious, will transfer patient to ICU for Versed or Precedex drip.
MAICOL Meeks, Hospitalist made aware.
[2024-10-08] MEDS: NSS (PRESERVATIVE FREE) 1 ML IV ×2 (07:10→21:05)
[2024-10-08] MEDS: MIRALAX 17 GRAMS PO (07:18)
[2024-10-08] MEDS: CATAPRES 0.1 MG PO (07:18)
[2024-10-08] MEDS: KLONOPIN 1 MG PO (07:18)
--- NOTE | 2024-10-08 07:44 | PTCARENOTE ---
PT received from avionics electrical engineer RN. Pt is severely autistic and nonverbal. He does not seem to know where he is but he does respond to his mother when she talks to him. He is not as responsive with staff. Pt becoming more restless, 2 mg IV ativan given
and pt is now resting comfortably. NSR on tele with HR in the 90's, + pulses, no edema. 95% on RA, breath sounds are diminished but clear. Round, obese ABD. Pt's mother reports he has had some issues with constipation. Hypoactive bowel sounds on
assessment. [address]/ 4 side rails. R upper arm capped 24G in place. Mother is at bedside, questions answered.
--- NOTE | 2024-10-08 07:50 | CON.INTV ---
Consultation
Consultation Request
Date/Time Consultation Requested: 10/08/2024
Date/Time Consultation Performed: 10/08/2024
Requesting Provider: Umu Treviño
Performing Provider: Makeda Humphrey
Reason for Consultation: Agitation
Medical History
-
Chief Complaint: Agitation
History of Present Illness:
Patient is a 24-year-old gentleman with history of nonverbal autism who presented to the emergency room for evaluation of agitation. Patient is nonverbal and history is primarily obtained from patient's medical records as well as discussion with
mother at bedside. Patient lives with his mother. Reportedly had an episode of URI symptoms about 2 weeks ago and reportedly has not been himself since. Episodes of increasing agitation and occasionally being violent. In the emergency room
patient was noted to be quite agitated and received multiple medications including Ativan, Haldol as well as ketamine. He also underwent straight cath in the emergency room for urine sample and there is some report of decreased agitation after
that. Patient was originally admitted to IMU. Overnight due to increasing agitation, patient was transferred to ICU for consideration of Precedex infusion. [employer] consult was requested for further input. Discussed with patient's mother at
bedside who reports that patient in 2023 had a prolonged hospitalization at [facility] for agitation and extensive workup was otherwise unremarkable. She also reports prior history of intubation and mechanical ventilation in the
setting of agitation.
Past Medical History
Past Medical History: Reports Other
Additional Past Medical History:
Non-Verbal Autism
Anxiety
Asthma
Morbid Obesity
IBS-C
Seizure Disorder
Past Surgical History: Reports None
Social History
Tobacco: Non-smoker
Alcohol: None
Drug: None
Living: With Family (Mother)
Family History
Family History: Not pertinent
Allergies / Home Medications
Allergies / Home Medications
Allergies
Allergy/AdvReac Type Severity Reaction Status Date / Time
seasonal and food sensitivity Allergy Pharmacy Uncoded 10/07/24 19:39
to Review
Home Medications
�Medication �Instructions �Recorded �Confirmed �Last Taken �Type
melatonin 3 mg tablet 3 mg PO DAILYPRN PRN agation 11/24/23 10/07/24 10/07/24 History
9 mg
ascorbic acid (vitamin C) 500 mg 500 mg PO DAILY 10/07/24 10/07/24 10/07/24 History
tablet (Vitamin C)
cholecalciferol (vitamin D3) 25 25 mcg PO DAILY 10/07/24 10/07/24 10/07/24 History
mcg (1,000 unit) tablet (Vitamin
D3)
clonazepam 1 mg tablet 1 mg PO BID 10/07/24 10/07/24 10/07/24 History
clonidine HCl 0.1 mg tablet 0.1 mg PO BID 10/07/24 10/07/24 10/07/24 History
cod liver oil 1 cap PO DAILY 10/07/24 10/07/24 Unknown History
cyanocobalamin (vitamin B-12) 1,000 mcg PO DAILY 10/07/24 10/07/24 10/07/24 History
1,000 mcg tablet
docusate sodium 100 mg capsule 100 mg PO DAILY 10/07/24 10/07/24 10/07/24 History
(Colace)
folic acid 1 mg tablet 1 mg PO DAILY 10/07/24 10/07/24 10/07/24 History
ibuprofen 200 mg tablet (Advil) 400 mg PO Q8HPRN PRN mild pain 10/07/24 10/07/24 Unknown History
lorazepam 2 mg tablet 2 mg PO DAILYPRN PRN anxiety 10/07/24 10/07/24 10/07/24 History
polyethylene glycol 3350 17 gram 17 g PO DAILY 10/07/24 10/07/24 10/07/24 History
oral powder packet (Miralax)
sennosides 8.6 mg tablet (senna) 8.6 mg PO DAILYPRN PRN constipation 10/07/24 10/07/24 Unknown History
tamsulosin 0.4 mg capsule (Flomax) 0.4 mg PO HS 10/07/24 10/07/24 10/06/24 History
valproic acid (as sodium salt) 250 250 mg PO BID@0800,1200 10/07/24 10/07/24 10/07/24 History
mg/5 mL oral solution
valproic acid (as sodium salt) 250 500 mg PO 10/07/24 10/07/24 10/06/24 History
mg/5 mL oral solution
Review of Systems
-
Unable to Obtain full review of systems at this time due to: Patient Non Verbal
Vitals / Labs / Diagnostic Testing
Vital Signs
Temp Pulse Resp BP Pulse Ox
98.8 F 0 22 141/85 100
10/08/24 00:52 10/08/24 04:45 10/08/24 04:20 10/08/24 07:18 10/08/24 04:00
Lab Data
10/08/24 04:03
10/08/24 04:03
Diagnostic Testing:
Physical Exam
-
HEENT: Normocephalic
Cardiovascular: S1/S2
Respiratory: Clear and Non-Labored Respirations
GI: Soft and Non Distended
Neurology: Other (Patient drowsy during my evaluation however was able to protect his airway as well. Noted to be in restraints.)
Skin: Warm
General: Comfortable
Assessment
-
#1. Agitation with known history of nonverbal autism.
- Patient is afebrile. WBC minimally elevated. Chest x-ray and abdominal ultrasound without any acute pathology. Urine analysis not suggestive of UTI. Urinary ketones likely related to decreased p.o. intake and dehydration with prerenal failure
on admission.
- Per patient's mother at bedside, constipation, urinary retention or any sort of pain tends to cause similar changes in patient's mentation
- Psychiatry consult for further input
- Start Precedex infusion with the goal of keeping patient comfortable without agitation
- Switch valproic acid to parenteral formulation and hold p.o. intake until patient is fully awake, alert and safely able to swallow.
#2. Acute kidney injury on admission, suspect prerenal. Also ketones noted in the urine.
- Creatinine improving, s/p IV fluids.
- Continue Flomax for now
- Mild hyperkalemia noted this morning with hyperchloremia, suspect related to normal saline resuscitation.
- Patient's mother reported that his p.o. intake has been quite low over the last few days
DVT prophylaxis with Lovenox
Critical Care time 65 mins -- The patient is admitted for acute critical illness for the treatment of vital organ failure and/or prevention of further life-threatening conditions. Total care includes time spent in review of history, physical exam,
medications, hemodynamic/ventilator parameters, laboratory data, imaging and discussion with house staff, pharmacy, respiratory therapy, finishing pan operator, and nursing.
[2024-10-08] MEDS: FLOMAX 0.4 MG PO (08:51)
[2024-10-08] MEDS: DEPAKENE 250 MG PO ×2 (09:33→12:33)
[2024-10-08] MEDS: COLACE LIQUID 100 MG PO (09:33)
[2024-10-08] MEDS: LR 500 IV (12:10)
[2024-10-08] MEDS: PRECEDEX 100 IV ×4 (12:26→23:21)
--- NOTE | 2024-10-08 13:00 | PTCARENOTE ---
Pt reassessed. Much more agitated currently. Attempting to pull at wires and lines, unable to redirect. [address], these are successful at keeping him in bed but he remains at a RASS of 3. Precedex gtt initiated, 2 mg ativan given.
RASS 3. Continue to titrate precedex. No new orders.
--- NOTE | 2024-10-08 14:33 | W.PN.HOSP.TC ---
Today's Communication/Plan
-
Monitor vital signs
see plan
Wean Precedex as tolerated
Psychiatry following
Discussed with mother at bedside
Nonbillable Note
Assessment / Plan
Assessment / Plan
General: Other (Obese 24y M currently sleeping / sedated.)
HEENT: Other (Thick neck. MMM.)
Respiratory: Clear; No Wheezes, Rales or Rhonchi
Cardiac: S1/S2 and Regular Rhythm; No Murmur
GI: Soft, Non Tender, Non Distended, Normal Bowel Sounds
Neuro: Sedated
Agitation
Non-Verbal Autism
Anxiety
- No evident / clear etiology for his agitation on work-up thus far.
Appears likely had some viral infection few weeks ago. Per mother at bedside, patient gets severely agitated with any infection
- Labs show mild NYDIA and are otherwise unremarkable. UA does not suggest infection.
- US shows gallstone - which has reportedly been present in the past. No GB wall thickening, fluid or other abnormalities.
- ? urinary retention given report of calming following straight cath.
Continue with bladder scan
- Increase tamsulosin to BID.
- Follow bladder scan protocol and straight cath if needed. Would try to avoid Murray as he is very high risk for traumatic removal.
- Intensify bowel regimen as chronic IBS-C could be contributing to urinary issues.
- Follow for improvement in agitation / mood.
- Continue usual home meds + PRN Ativan, etc as needed for anxiety / agitation control. Persistent agitation now requiring Precedex. ICU monitoring. Psychiatry following
Seizure Disorder
- Isolated petit mal seizure reported in his records.
- Takes VPA - but this is likely for mood.
- VPA level noted. Continue current dose for now.
Mild hypernatremia
Monitor
Morbid Obesity due to excess calories
- Affects all aspects of care.
- Some studies / interventions may be limited due to his body habitus.
DVT Prophylaxis: Lovenox
Code Status: Full
Anticipated Discharge: 24 - 48 hours
Subjective/Interval History
-
Date of Service: October 08, 2024
sedated
Objective Data
-
Labs:
Laboratory Results
10/08/24
04:03
WBC 14.6 H
Hgb 14.1
Hct 40.2
Plt Count 306
Sodium 146 H
Potassium 4.4
Chloride 113 H
Carbon Dioxide 20 L
BUN 17
Creatinine 1.2
Glucose 86
Calcium 9.2
Vital Signs:
Vital Signs
Temp Pulse Resp BP Pulse Ox
99.4 F 97 10 141/85 97
10/08/24 12:47 10/08/24 08:56 10/08/24 08:30 10/08/24 07:18 10/08/24 09:57
--- NOTE | 2024-10-08 15:29 | CS.PSYCHR ---
Consult Summary - Psychiatry
-
Pt is a 24 yo male with PMH of morbid obesity and Autism Spectrum d/o- non verbal, who presented to ED for evaluation of agitation. History was obtained from parents. Patient reportedly had 'cold symptoms' about 2 weeks ago. Since that time he
has not been himself. Over the past week, he has become increasingly agitated and aggressive. In the ED, patient was given Ativan, Haldol, Saphris, and Ketamine due to severe agitation, eventually fell asleep. Patient noted to have been straight-
cath'd in the ED for urine sample - and his agitation seemed to significantly decrease following this. Today, pt seen with mother present at bedside, asleep after being given total of 4 mg of prn Ativan this morning. Precedex was ordered but not
tried yet. Pt's mother reports pt followed by Asya Rea for many years at [facility] in [place]. He has been kept on medications from his stay at [facility] Apr 2024. Pt had an unspecified GI illness about a month ago, seemed to be
constipated a week ago per mother. She reports Abilify seemed to benefit the pt, helped to 'wake him up', but was not continued as pt was having medical problems at that time.
Psych Hx: Autism, non-verbal, described by his mother as a 'giant toddler' at baseline, able to make some signs to communicate
Hx of agitation/aggression when on Wegovy in 2023- caused gall stones and kidney stones/UTI's per mother
FHx: older brother- Bipolar d/o/Schizoaffective d/o
MSE: obese, in soft restraints, sedated/sleeping soundly.
Imp: Autism (ASD) with agitation/aggression
Rec: continue existing psychotropic medications. Consider re-trial of Abilify; agree with trying Precedex, although this is not an ongoing/outpatient option
Will follow
[2024-10-08] MEDS: LR 1000 IV (19:13)
--- NOTE | 2024-10-08 20:30 | PTCARENOTE ---
Resumed care of pt this evening. Received pt in 4 point restraints w/ 4 side rails. Pt is sedated on precedex gtt infusing via right upper arm.
[2024-10-08] MEDS: FLOMAX PO (20:45)
[2024-10-08] MEDS: COLACE LIQUID PO (20:45)
[2024-10-08] MEDS: KLONOPIN PO (20:50)
[2024-10-08] MEDS: CATAPRES PO (20:50)
[2024-10-08] MEDS: SENNA SYRUP PO (20:51)
[2024-10-08] MEDS: LOVENOX 40 MG SC (21:04)
[2024-10-08] MEDS: DEPACON 55 MG IV (21:06)
[2024-10-09] VITALS (22 sets, daily range): BP systolic 148–198; BP diastolic 88–143; PULSE 37; BMI 74.0
[2024-10-09] MEDS: KLONOPIN 1 MG PO ×4 (00:12→22:53)
[2024-10-09] MEDS: CATAPRES 0.1 MG PO ×3 (00:12→20:27)
--- NOTE | 2024-10-09 01:30 | PTCARENOTE ---
Pt impulsive and uncooperative at times, difficult to redirect. Pt on precedex gtt infusing via right foot due to right upper arm IV infiltration.
[2024-10-09] MEDS: PRECEDEX 100 IV ×5 (03:46→20:41)
[2024-10-09 05:27] LABS: Hemoglobin 13.6 g/dL (13.0-18.0); Mean Corp Hgb Conc. 34.9 g/dL (33.0-37.0); Mean Corpuscular Hgb 31.9 pg (27.0-31.0); Mean Corpuscular Volume 91.5 fL (80.0-94.0); Mean Platelet Volume 9.6 fL (7.4-10.4); Platelet Count 243 10^3/uL (130-400); Red Blood Cell Count 4.26 10^6/uL (4.70-6.10); Red Cell Dist. Width 12.7 % (11.5-14.5); White Blood Cell Count 9.6 10^3/uL (4.8-10.8)
[2024-10-09 05:45] LABS: Blood Urea Nitrogen 15 mg/dl (9-20); Calcium 9.1 mg/dl (8.4-10.2); Carbon Dioxide 23 mmol/L (22-30); Chloride 109 mmol/L (98-107); Estimated Creatinine Clearance > 125 ml/min; Glucose 110 mg/dl (70-99); Potassium 4.4 mmol/L (3.5-5.1); Sodium 143 mmol/L (135-145); eGFR > 60.00
--- NOTE | 2024-10-09 06:30 | PTCARENOTE ---
Please note RR vital signs from 0100 to 0600, are not measured accurately due to pt's body habitus. Pt respirations are unlabored and equal. Pt pulse ox is measuring at 96% on RA.
[2024-10-09] MEDS: DEPACON 52.5 MG IV ×2 (08:09→11:32)
[2024-10-09] MEDS: LR 1000 IV ×2 (08:09→23:20)
--- NOTE | 2024-10-09 08:10 | PTCARENOTE ---
Received pt in 4 point soft restraints with 4 side rails. He is sleeping with Precedex infusing via a right foot #22g protective catheter & LR@ 75ml/hr. His mother is at the bedside. She is supportive and verbalized that she would like to get him
home leisa but would need PRN meds for escalation of his behavior in the future. We came up with a plan to taper off the Precedex to properly medicate for discharge. Lungs CTA, Good peripheral pulses. No edema. Morbidly obese. Hypoactive BSX4. He is
naked in the bed due to limit tactile triggers. Safe environment maintained. Will continue to monitor.
[2024-10-09] MEDS: MIRALAX 17 GRAMS PO (08:34)
[2024-10-09] MEDS: COLACE LIQUID 100 MG PO ×2 (08:34→20:28)
[2024-10-09] MEDS: FLOMAX 0.4 MG PO ×2 (08:34→20:28)
[2024-10-09] MEDS: LOVENOX 40 MG SC ×2 (08:34→20:27)
--- NOTE | 2024-10-09 11:29 | W.PN.UPDATE ---
Update Note
Progress Note Update
patient seen chart reviewed. discussed with dr obregon who was with mother when i came to his room and with nursing. darlin present at bedside. the patient was sleeping seemingly deeply. mother is concerned that he may have some underlying medical
issue as cause for recent events. dr obregon planned to talk to fur trimmer about further testing. mother spoke to me of her life with dylan. he is her youngest child. she has triplets who are 35 years old and a 28 yr old son who is dx with
'bipolar or schiz' who is in shelter. this is very painful for her. she and omar have always had a reasonably good working relationship and this recent event is new for her. he sees dr titi avlentin whom i called. she will call me back later
today at around 1230. discussed with mom restarting abilify which mom feels really helped him in the past. she is okay w this. she is asking for medication that she might use at home in the event he becomes agitated again. she asked that i
discuss this with dr valentin who has taken care of dylan since he was nine years old which i will do. in the meantime ordered abilify to start today.
[2024-10-09] MEDS: NSS (PRESERVATIVE FREE) 1 ML IV ×3 (11:48→20:26)
[2024-10-09] MEDS: ATIVAN 2 MG IV ×3 (11:48→20:26)
[2024-10-09] MEDS: ABILIFY 2 MG PO (11:56)
[2024-10-09] MEDS: NSS (PRESERVATIVE FREE) 0.5 ML IV (12:07)
[2024-10-09] MEDS: ATIVAN 1 MG IV (12:07)
--- NOTE | 2024-10-09 12:40 | PTCARENOTE ---
Spoke with Dr. Castro over the phone regarding the plan of care. Med changes in consultation with his primary psychiatrist Dr. Rea provided. His mother was updated regarding this.
--- NOTE | 2024-10-09 13:09 | W.PN.HOSP.TC ---
Today's Communication/Plan
-
monitor vitals
see plan
wean precedex
psych following; started abilify
will need prn meds prior to dc for acute agitation episodes, defer to psych
Do not believe need any further imaging for kidney stone; RBC neg on previous Ua. leukocytosis improving
Discussed with mother at bedside
Assessment / Plan
Assessment / Plan
General: Other (Obese 24y M currently sleeping / sedated.)
HEENT: Other (Thick neck. MMM.)
Respiratory: Clear; No Wheezes, Rales or Rhonchi
Cardiac: S1/S2 and Regular Rhythm; No Murmur
GI: Soft, Non Tender, Non Distended, Normal Bowel Sounds
Neuro: Sedated
Agitation
Non-Verbal Autism
Anxiety
- No evident / clear etiology for his agitation on work-up thus far.
Appears likely had some viral infection few weeks ago. Per mother at bedside, patient gets severely agitated with any infection
- Labs show mild NYDIA and are otherwise unremarkable. UA does not suggest infection.
- US shows gallstone - which has reportedly been present in the past. No GB wall thickening, fluid or other abnormalities.
- ? urinary retention given report of calming following straight cath.
Continue with bladder scan
doesn't appear had a kidney stone as RBC on UA was neg. dont think any further testing is needed as labs are improving
- Increase tamsulosin to BID.
- Follow bladder scan protocol and straight cath if needed. Would try to avoid Murray as he is very high risk for traumatic removal.
- Intensify bowel regimen as chronic IBS-C could be contributing to urinary issues.
- Follow for improvement in agitation / mood.
- Continue usual home meds + PRN Ativan, etc as needed for anxiety / agitation control. Persistent agitation now requiring Precedex. ICU monitoring. Psychiatry following. started on abilify. will also need further prn PO medication prior to dc
which mother can use during agitation episodes
Seizure Disorder
- Isolated petit mal seizure reported in his records.
- Takes VPA - but this is likely for mood.
- VPA level noted. Continue current dose for now.
Mild hypernatremia
Monitor
Morbid Obesity due to excess calories
- Affects all aspects of care.
- Some studies / interventions may be limited due to his body habitus.
DVT Prophylaxis: Lovenox
Code Status: Full
Anticipated Discharge: Within 24 hours
Subjective/Interval History
-
Date of Service: October 09, 2024
sedated
Objective Data
-
Labs:
Laboratory Results
10/09/24
04:58
WBC 9.6
Hgb 13.6
Hct 39.0
Plt Count 243 D
Sodium 143
Potassium 4.4
Chloride 109 H
Carbon Dioxide 23
BUN 15
Creatinine 1.0
Glucose 110 H
Calcium 9.1
Vital Signs:
Vital Signs
Temp Pulse Resp BP Pulse Ox
99.8 F 47 0 155/96 95
10/09/24 08:20 10/09/24 08:34 10/09/24 06:00 10/09/24 08:34 10/09/24 08:15
I&O
10/08/24 10/09/24 10/10/24
06:59 06:59 06:59
Intake Total 594.8 / 594.8
Balance 594.8 / 594.8
--- NOTE | 2024-10-09 13:36 | W.PN.UPDATE ---
Update Note
Progress Note Update
spoke to out pt psychiatrist. discussed medications and a decision made to pursue increased depakote 500 mg tid klonopin 1 mg tid abilify 5 mg bid. she said he had been on 30 mg daily in the past with some good response. ordered meds as such and
spoke to mom to discuss. will continue discussion w mom tomorrow. dr valentin says that there have been discussions that could be placed in another living facility instead of home which she feels could help mom and patient but so far mom not on
board.
--- NOTE | 2024-10-09 13:58 | W.PN.INTV ---
Today's Communication / Plan
Recommendations
- Wean Precedex as tolerated
- Continue to monitor off antibiotics
- Medication adjustment per psychiatry service
Assessment
-
#1. Agitation with known history of nonverbal autism.
- Patient is afebrile. WBC minimally elevated on admission, normal today. Chest x-ray and abdominal ultrasound without any acute pathology. Urine analysis not suggestive of UTI. Urinary ketones likely related to decreased p.o. intake and
dehydration with prerenal failure on admission. Overall infectious workup has been negative.
- Per patient's mother at bedside, constipation, urinary retention or any sort of pain tends to cause similar changes in patient's mentation
- Psychiatry consult for further input. Clonazepam, Depakote dosage being adjusted and Abilify resumed.
- Patient currently on Precedex infusion, continue to wean as tolerated. Currently @ 0.4
- Continue valproic acid parenterally until patient is fully awake alert and reliably able to take all the medications.
#2. Acute kidney injury on admission, suspect prerenal. Also ketones noted in the urine.
- NYDIA resolved, creatinine 1.0 now
- Continue Flomax for now
- Mild hypernatremia, resolved
- Patient's mother reported that his p.o. intake has been quite low over the last few days
DVT prophylaxis with Lovenox, 40 mg twice daily in view of patient's BMI of 74
Discussed with patient's mother at bedside.
Critical Care time 42 mins -- The patient is admitted for acute critical illness for the treatment of vital organ failure and/or prevention of further life-threatening conditions. Total care includes time spent in review of history, physical exam,
medications, hemodynamic/ventilator parameters, laboratory data, imaging and discussion with house staff, pharmacy, respiratory therapy, electronics inspector, and nursing.
Subjective Dataa
Subjective Data
Date of Service:
Date of Service: October 09, 2024
Subjective:
Patient comfortably lying in bed, sleeping, wakes up with little stimulation.
Review of Systems
General: Other (Patient has nonverbal autism)
Genitourinary: Other
Objective Data
Data Reviewed
Vital Signs / I&O / Oxygen:
Vital Signs
Temp Pulse Resp BP Pulse Ox
99.8 F 47 0 155/96 95
10/09/24 08:20 10/09/24 08:34 10/09/24 06:00 10/09/24 08:34 10/09/24 08:15
Intake and Output
10/08/24 10/09/24 10/10/24
06:59 06:59 06:59
Intake Total 881.0 / 881.0
Balance 881.0 / 881.0
SaO2 95
Physical Exam
General: Comfortable
HEENT: Normocephalic
Cardiovascular: S1-S2
Respiratory: Clear
GI: Soft and Non Distended
Skin: Warm
Labs/Micro/Reports
Lab Data
10/09/24 04:58
10/09/24 04:58
--- NOTE | 2024-10-09 14:00 | PTCARENOTE ---
Clarified Abilify order that now reads 5mg PO BID with Dr. Castro. Pt will receive 5 mg Abilify BID as ordered.
--- NOTE | 2024-10-09 14:27 | PTCARENOTE ---
Precedex tapered. His mother is laying down in the room. SHe appears tired. Stated 'I am getting my A$$ kicked'. Supportive care provided. She was informed that if she needs anything to just call and let us know.
[2024-10-09] MEDS: LR IV (15:15)
--- NOTE | 2024-10-09 16:40 | PTCARENOTE ---
Unable to redirect the pt after waking him up for meds. He voided, was cleaned, provided ice chips and gingerale, performed mouth care. He continued to try and get OOB. Dr. Castro notified via TT. Will administer additional dose of Depakot as
ordered.
[2024-10-09] MEDS: DEPACON 55 MG IV (17:38)
--- NOTE | 2024-10-09 19:38 | PTCARENOTE ---
Incontinent for a large amount of urine. Full CHG bath provided. Full linen change. His father was at the bedside, supportive with care. He drank some gingerale and ate some ice chips. 4 point soft restraints still necessary. Safe environment
maintained.
[2024-10-09] MEDS: ABILIFY 5 MG PO (20:27)
--- NOTE | 2024-10-09 21:00 | PTCARENOTE ---
Pt received start of shift, HR SB/SR. Precedex and LR infusing as ordered. Pt very agitated and uncooperative. Father at bedside. Diversional activities ineffective. Precedex titrated up and PRN ativan - see MAR. Once pt asleep, HR in the 30s.
Precedex titrated back down.
[2024-10-09] MEDS: DUONEB 3 ML INH (21:53)
[2024-10-09] MEDS: SENNA SYRUP PO (23:08)
[2024-10-10] VITALS (14 sets, daily range): BP systolic 152–200; BP diastolic 90–116
--- NOTE | 2024-10-10 | PTCARENOTE ---
Precedex gtt still infusing. Mother at bedside. On waking pt to take evening meds, pt became very agitated and restless. Diversional activities slightly effective, able to redirect energy more effectively.
[2024-10-10] MEDS: DEPACON 55 MG IV ×3 (00:30→16:17)
[2024-10-10] MEDS: PRECEDEX 100 IV ×7 (00:51→22:30)
[2024-10-10] MEDS: ATIVAN 2 MG IV ×3 (05:39→21:09)
[2024-10-10] MEDS: NSS (PRESERVATIVE FREE) 1 ML IV ×3 (05:39→21:09)
[2024-10-10 05:41] LABS: Hematocrit 38.7 % (39.0-52.0); Mean Corp Hgb Conc. 36.2 g/dL (33.0-37.0); Mean Corpuscular Hgb 31.9 pg (27.0-31.0); Mean Corpuscular Volume 88.2 fL (80.0-94.0); Mean Platelet Volume 9.4 fL (7.4-10.4); Platelet Count 244 10^3/uL (130-400); Red Blood Cell Count 4.39 10^6/uL (4.70-6.10); Red Cell Dist. Width 12.2 % (11.5-14.5); White Blood Cell Count 10.7 10^3/uL (4.8-10.8)
[2024-10-10 06:04] LABS: Blood Urea Nitrogen 12 mg/dl (9-20); Calcium 9.3 mg/dl (8.4-10.2); Carbon Dioxide 23 mmol/L (22-30); Chloride 107 mmol/L (98-107); Estimated Creatinine Clearance > 125 ml/min; Glucose 81 mg/dl (70-99); Potassium 4.4 mmol/L (3.5-5.1); Sodium 140 mmol/L (135-145); eGFR > 60.00
--- NOTE | 2024-10-10 06:08 | PTCARENOTE ---
Pt massively incontinent urine. After changing linens pt increasingly agitated and uncooperative. HR 110s, RR 50-60s. Precedex titrated up. PRN ativan.
[2024-10-10] MEDS: MIRALAX 17 GRAMS PO (08:53)
[2024-10-10] MEDS: CATAPRES 0.1 MG PO ×2 (08:58→20:12)
[2024-10-10] MEDS: LOVENOX 40 MG SC ×2 (08:58→20:13)
[2024-10-10] MEDS: COLACE LIQUID 100 MG PO ×2 (08:58→20:12)
[2024-10-10] MEDS: KLONOPIN 1 MG PO ×3 (08:58→21:51)
[2024-10-10] MEDS: ABILIFY 5 MG PO ×2 (09:02→20:12)
[2024-10-10] MEDS: FLOMAX 0.4 MG PO ×2 (09:02→20:12)
[2024-10-10] MEDS: LR IV (12:03)
--- NOTE | 2024-10-10 12:18 | W.PN.HOSP.TC ---
Today's Communication/Plan
-
monitor vitals
see plan
cw abilify,klonopin,depakote
need better control from PO meds so can wean precedex; psych to see today
Assessment / Plan
Assessment / Plan
General: Other (Obese 24y M currently sleeping / sedated.)
HEENT: Other (Thick neck. MMM.)
Respiratory: Clear; No Wheezes, Rales or Rhonchi
Cardiac: S1/S2 and Regular Rhythm; No Murmur
GI: Soft, Non Tender, Non Distended, Normal Bowel Sounds
Neuro: Sedated
Agitation
Non-Verbal Autism
Anxiety
- No evident / clear etiology for his agitation on work-up thus far.
Appears likely had some viral infection few weeks ago. Per mother at bedside, patient gets severely agitated with any infection
- Labs show mild NYDIA and are otherwise unremarkable. UA does not suggest infection.
- US shows gallstone - which has reportedly been present in the past. No GB wall thickening, fluid or other abnormalities.
- ? urinary retention given report of calming following straight cath.
Continue with bladder scan
doesn't appear had a kidney stone as RBC on UA was neg. dont think any further testing is needed as labs are improving
- Increase tamsulosin to BID.
- Follow bladder scan protocol and straight cath if needed. Would try to avoid Murray as he is very high risk for traumatic removal.
- Intensify bowel regimen as chronic IBS-C could be contributing to urinary issues.
- Follow for improvement in agitation / mood.
- Continue usual home meds + PRN Ativan, etc as needed for anxiety / agitation control. Persistent agitation now requiring Precedex. ICU monitoring. Psychiatry following. started on abilify. Also started on Klonopin,will also need further prn
PO medication prior to dc which mother can use during agitation episodes
Seizure Disorder
- Isolated petit mal seizure reported in his records.
- Takes VPA - but this is likely for mood.
- VPA level noted
Mild hypernatremia
Monitor
Morbid Obesity due to excess calories
- Affects all aspects of care.
- Some studies / interventions may be limited due to his body habitus.
DVT Prophylaxis: Lovenox
Code Status: Full
Anticipated Discharge: 24 - 48 hours
Subjective/Interval History
-
Date of Service: October 10, 2024
Sedated
Objective Data
-
Labs:
Laboratory Results
10/10/24 10/10/24
05:22 05:23
WBC 10.7
Hgb 14.0
Hct 38.7 L
Plt Count 244
Sodium 140
Potassium 4.4
Chloride 107
Carbon Dioxide 23
BUN 12
Creatinine 1.0
Glucose 81
Calcium 9.3
Vital Signs:
Vital Signs
Temp Pulse Resp BP Pulse Ox
99.8 F 46 41 183/103 92
10/10/24 12:07 10/10/24 12:00 10/10/24 12:00 10/10/24 12:00 10/10/24 12:00
I&O
10/09/24 10/10/24 10/11/24
06:59 06:59 06:59
Intake Total 3170.9 / 3286.7 732.0 / 732.0
Balance 3170.9 / 3286.7 732.0 / 732.0
--- NOTE | 2024-10-10 12:32 | PTCARENOTE ---
Incontinent of moderate amount of yellow urine. He tolerated turning and cleaning. Precedex tapered. Mother remains at the bedside.
--- NOTE | 2024-10-10 12:48 | PTCARENOTE ---
3 assist to the recliner chair. He pulled the monitor leads off. Will replace when he is calmer. Mother remains with him using calming strategies.
--- NOTE | 2024-10-10 13:20 | PTCARENOTE ---
Mother called out and I entered the room founding her literally laying on top of him keeping him in the chair. 3 assist to bed. Too impulsive to remain in the chair.
--- NOTE | 2024-10-10 14:12 | W.PN.INTV ---
Today's Communication / Plan
Recommendations
- Continue to wean Precedex as tolerated
- Await further psychiatry input
Assessment
-
#1. Agitation with known history of nonverbal autism.
- Patient is afebrile. WBC minimally elevated on admission, normal today. Chest x-ray and abdominal ultrasound without any acute pathology. Urine analysis not suggestive of UTI. Urinary ketones likely related to decreased p.o. intake and
dehydration with prerenal failure on admission. Overall infectious workup has been negative.
- Per patient's mother at bedside, constipation, urinary retention or any sort of pain tends to cause similar changes in patient's mentation
- Psychiatry consult for further input. Clonazepam 1mg tid, Depakote 500 mg IV qbh, dosage being adjusted and Abilify resume @ 5 mg bid
- Patient currently on Precedex infusion, continue to wean as tolerated. Precedex had been as high as @1, lately @0.8. Also needed 4 point restraints.
- Continue valproic acid parenterally until patient is fully awake alert and reliably able to take all the medications.
#2. Acute kidney injury on admission, suspect prerenal. Also ketones noted in the urine.
- NYDIA resolved, creatinine 1.0 now
- Continue Flomax for now
- Mild hypernatremia, resolved
- Patient's mother reported that his p.o. intake has been quite low over the last few days
DVT prophylaxis with Lovenox, 40 mg twice daily in view of patient's BMI of 74
Discussed with patient's mother at bedside.
Critical Care time 45 mins -- The patient is admitted for acute critical illness for the treatment of vital organ failure and/or prevention of further life-threatening conditions. Total care includes time spent in review of history, physical exam,
medications, hemodynamic/ventilator parameters, laboratory data, imaging and discussion with house staff, pharmacy, respiratory therapy, storage receipt poster, and nursing.
Subjective Dataa
Subjective Data
Date of Service:
Date of Service: October 10, 2024
Subjective:
Patient appears to be more agitated today. Otherwise sitting in bed in no acute distress.
Review of Systems
General: Other (Unobtainable due to patient's underlying nonverbal autism)
Objective Data
Data Reviewed
Vital Signs / I&O / Oxygen:
Vital Signs
Temp Pulse Resp BP Pulse Ox
99.8 F 46 41 183/103 92
10/10/24 12:07 10/10/24 12:00 10/10/24 12:00 10/10/24 12:00 10/10/24 12:00
Intake and Output
10/09/24 10/10/24 10/11/24
06:59 06:59 06:59
Intake Total 3170.9 / 3286.7 917.2 / 917.2
Output Total 800 / 800
Balance 3170.9 / 3286.7 117.2 / 117.2
SaO2 92
Physical Exam
General: Comfortable
HEENT: Normocephalic
Cardiovascular: S1-S2
Respiratory: Clear
GI: Soft and Non Distended
Skin: Warm
Labs/Micro/Reports
Lab Data
10/10/24 05:23
10/10/24 05:22
--- NOTE | 2024-10-10 14:27 | PTCARENOTE ---
Discussed the plan of care with Dr. Castro. Will continue with current medication regimen.
--- NOTE | 2024-10-10 15:19 | PTCARENOTE ---
Dr. Johnson notified of SBP 200 w/RR 40's. Pt reting comfortably in bed.
[2024-10-10] MEDS: APRESOLINE 5 MG IV (16:17)
--- NOTE | 2024-10-10 17:02 | PTCARENOTE ---
Slightly agitated. Pulled ECG leads off. Attempting to get OOB. Will continue to provide supportive care.
--- NOTE | 2024-10-10 17:51 | PTCARENOTE ---
3 assist OOB to the chair then the bathroom. He remains in the chair with his mother standing directly in front of him counting and using other strategies to keep him calm and in the chair. He keeps communicating 'car ride' using ASL.
--- NOTE | 2024-10-10 19:07 | PTCARENOTE ---
Pt remained in the chair at handoff. He is sleeping at this time. Mother remains right next to him.
--- NOTE | 2024-10-10 21:30 | PTCARENOTE ---
Pt received start of shift. Precedex gtt currently infusing. Pt OOB in chair w/ mother at bedside. Pt uncooperative. Unable to place make up worker on pt d/t pt immediately removing them and grabbing staff hands as they try to place them.Constantly
trying to get out of chair. Redirected to bathroom x3 assist. Pt back into bed, restrained. PRN ativan - see MAR. Mother remains at bedside attempting to use calming strategies.
[2024-10-10] MEDS: SENNA SYRUP 17.6 MG PO (21:51)
[2024-10-10] MEDS: VALIUM INJECTION 10 MG IV (22:30)
--- NOTE | 2024-10-10 23:11 | PTCARENOTE ---
Calming strategies ineffective. Precedex titrated up. Pt continues to bounce in the bed attempting to get out. Pulling at restraints, attempting to use L foot to remove R foot IV. Unable to be redirected. RR 50s-60s. Pt extremely diaphoretic from
effort. 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 10mg Valium IV ordered and administered - see MAR. Pt's mother remains at bedside.
[2024-10-11] VITALS (16 sets, daily range): BP systolic 152–205; BP diastolic 82–126; PULSE 32
[2024-10-11] MEDS: DEPACON 55 MG IV ×2 (00:35→08:40)
[2024-10-11] MEDS: LR IV ×2 (00:36→19:17)
[2024-10-11] MEDS: PRECEDEX 100 IV ×10 (01:01→23:25)
[2024-10-11] MEDS: APRESOLINE 5 MG IV (04:06)
[2024-10-11] MEDS: ATIVAN 2 MG IV ×3 (05:56→16:14)
[2024-10-11] MEDS: NSS (PRESERVATIVE FREE) 1 ML IV (05:56)
[2024-10-11 06:06] LABS: Blood Urea Nitrogen 11 mg/dl (9-20); Calcium 8.9 mg/dl (8.4-10.2); Carbon Dioxide 24 mmol/L (22-30); Chloride 106 mmol/L (98-107); Estimated Creatinine Clearance > 125 ml/min; Glucose 99 mg/dl (70-99); Potassium 3.8 mmol/L (3.5-5.1); Sodium 140 mmol/L (135-145); eGFR > 60.00
--- NOTE | 2024-10-11 06:48 | PTCARENOTE ---
Pt with large amount incontinence of bladder. On changing pt, pt became very restless and agitated. Reaching and pulling at [employer] leads. Bouncing in bed trying to get out. PRN roman - see MAR.
--- NOTE | 2024-10-11 08:15 | PTCARENOTE ---
Complete assessment done, pt turned and cleaned for incontinence of urine. Precedex iv at 1 mcg/kg/min infusing. HR SB-SR, BP elevated, plan of carae discussed with Dr Humphrey during pre-rounds.
[2024-10-11] MEDS: ABILIFY 5 MG PO ×3 (08:51→21:21)
[2024-10-11] MEDS: CATAPRES 0.1 MG PO ×2 (08:54→21:20)
[2024-10-11] MEDS: COLACE LIQUID 100 MG PO ×2 (08:54→21:24)
[2024-10-11] MEDS: FLOMAX 0.4 MG PO ×2 (08:55→21:21)
[2024-10-11] MEDS: KLONOPIN 1 MG PO ×3 (08:57→21:20)
[2024-10-11] MEDS: LOVENOX 40 MG SC ×2 (08:58→21:21)
[2024-10-11] MEDS: MIRALAX 17 GRAMS PO (08:59)
--- NOTE | 2024-10-11 10:40 | PTCARENOTE ---
Pt incontinent of urine, mela care done and linen changed. PRN Apresoline 5 mg iv given for for bp 205/111. Pt with L foot int, discussed with DR Humphrey and IV team to put in a mid line for better iv management, but as pt was being set up with
sterile field, pt's mon said that she did want pt to have a new line placed. Midline put on hold for now.
[2024-10-11] MEDS: NORVASC 5 MG PO (11:11)
--- NOTE | 2024-10-11 11:15 | VATNOTE ---
Addendum entered by Ayla Clark RN 10/11/24 11:43:
Notified by [facility] that Dr. Humphrey asked to hold on the midline placement at this time.
Original Note:
Asked by ICU MD to place midline for more stable access for pt. During set up for procedure, pt's mother, Vera, returned to the patient's room. Discussed with pt's mother the need and process of the procedure. Pt's mother stated she didn't
understand why we were placing a midline as she was under the impression that she was going to have to take the pt home today. Procedure aborted, discussed with Dr. Humphrey who will speak with the patient's mother prior to continuing midline
placement.
--- NOTE | 2024-10-11 11:55 | VATNOTE ---
Notified by PCN that pt's mother agreeable to midline at this time. Upon entering pt's room pt is pulling at cardiac leads, is sitting up watching movies and being fed by his mother. Discussed with PCN, pt's current status is not conducive to
midline placement at this time (concerned for pt grabbing at sterile field and at nursing staff during procedure with his current LOC); midline not placed for safety concerns. Asked PCN to please notify VAT when pt is less stimulated.
[2024-10-11] MEDS: APRESOLINE 10 MG IV (12:14)
--- NOTE | 2024-10-11 12:32 | W.PN.UPDATE ---
Update Note
Progress Note Update
patient seen chart reviewed. discussed with pharmacy, nursing and with dr crystal. spoke with mother at bedside at length. a number of issues were addressed. patient continues to have periods of significant agitation requiring prns as well as
increases in precedex. there is no obvious medical cause that is precipitating his agitation. would precede as follows. increase abilify to 5 mg po tid. his psychiatrist say she was at one point taking 30 mg with some success. will get depakote
level in the am and aim for a blood level between 100 and 150. discussed w nursing and dr crystal whether we could increase clonidine to tid. he did well apparently in the past w a clonidine patch but kept ripping it off as he is sensitive to skin
sensations. concern is that hr has decreased to 40's we agreed to try and cut back the precedex and if this is successful to add the third clonidine dose. also discussed with the issue of placing a midline. mother said she did not say no but felt
upset that she was asked to leave the room when it was placed. mother sees herself as his advocate and she will not leave the room but would stand back and sit on the sofa. the midline would be advantageous in that the iv in his foot is
precariously placed and limits movement and there is always risk of it falling out. for him to be able to get oob more frequently which has been accomplished despite the iv in his foot may help alleviate some of the agitation. there has been
discussion re patient going to a psychiatric facility. there is no psychiatric facility that i know of that would accept this patient who requires so much care. even for autistic children including teens there is only one facility ([facility], [place])
which will accept autistic patients fro whom agitation is a serious issue. patients like mr rosa are orphans as far as opportunities for in pt psych. lastly mom has been criticized for not placing her son in an rtf facility. while this might make
her life easier it is NOT a panacea. if he were living in an rtf, they would readily drop him off at the ER were he to get agitated and whether they would then take him back is a real question . all dispositions for mr roas are fraught with
potential difficulty psych will continue to follow.
--- NOTE | 2024-10-11 13:32 | PTCARENOTE ---
Complete assessment done and documented. Pt with periods of being calm, but then quickly will becomes agitated. Pt on Precedex titrated. Pt Kam updated on pt's labs and BP.
--- NOTE | 2024-10-11 13:51 | W.PN.HOSP.TC ---
Today's Communication/Plan
-
monitor vitals
see plan
abilify increased by psych
wean precedex
on valproate
monitor mental status
cw amlodpine
hydralazine prn
Assessment / Plan
Assessment / Plan
General: Other (Obese 24y M currently sleeping / sedated.)
HEENT: Other (Thick neck. MMM.)
Respiratory: Clear; No Wheezes, Rales or Rhonchi
Cardiac: S1/S2 and Regular Rhythm; No Murmur
GI: Soft, Non Tender, Non Distended, Normal Bowel Sounds
Neuro: Sedated
Agitation
Non-Verbal Autism
Anxiety
- No evident / clear etiology for his agitation on work-up thus far.
Appears likely had some viral infection few weeks ago. Per mother at bedside, patient gets severely agitated with any infection
- Labs show mild NYDIA and are otherwise unremarkable. UA does not suggest infection.
- US shows gallstone - which has reportedly been present in the past. No GB wall thickening, fluid or other abnormalities.
- ? urinary retention given report of calming following straight cath.
Continue with bladder scan
doesn't appear had a kidney stone as RBC on UA was neg. dont think any further testing is needed as labs are improving
- Increase tamsulosin to BID.
- Follow bladder scan protocol and straight cath if needed. Would try to avoid Murray as he is very high risk for traumatic removal.
- Intensify bowel regimen as chronic IBS-C could be contributing to urinary issues.
- Follow for improvement in agitation / mood.
- Continue usual home meds + PRN Ativan, etc as needed for anxiety / agitation control. Persistent agitation now requiring Precedex. ICU monitoring. Psychiatry following. started on abilify, now increased to 5 mg 3 times daily. Also started on
Klonopin. Continue with clonidine. Wean Precedex .will also need further prn PO medication prior to dc which mother can use during agitation episodes
sinus tiffany likely 2/2 sedation, wean precedex
Seizure Disorder
- Isolated petit mal seizure reported in his records.
- Takes VPA - but this is likely for mood.
- VPA level noted
HTN
no prior hx
agree with amlodipine
hydralazine prn
Mild hypernatremia
Monitor; resolved
Morbid Obesity due to excess calories
- Affects all aspects of care.
- Some studies / interventions may be limited due to his body habitus.
DVT Prophylaxis: Lovenox
Code Status: Full
Anticipated Discharge: > 48 hours
Subjective/Interval History
-
Date of Service: October 11, 2024
Still get agitated
Objective Data
-
Labs:
Laboratory Results
10/11/24
05:17
Sodium 140
Potassium 3.8
Chloride 106
Carbon Dioxide 24
BUN 11
Creatinine 0.9
Glucose 99
Calcium 8.9
Vital Signs:
Vital Signs
Temp Pulse Resp BP Pulse Ox
98 F 47 21 182/107 96
10/11/24 12:00 10/11/24 13:15 10/11/24 13:15 10/11/24 12:14 10/11/24 13:25
I&O
10/10/24 10/11/24 10/12/24
06:59 06:59 06:59
Intake Total 3170.9 / 3286.7 1571.3 / 1612.1 263.2 / 263.2
Output Total 1850 / 1850
Balance 3170.9 / 3286.7 -278.7 / -237.9 263.2 / 263.2
--- NOTE | 2024-10-11 14:23 | W.PN.INTV ---
Today's Communication / Plan
Recommendations
- Add amlodipine 5 mg daily in view of hypertension
- Wean Precedex as tolerated
- Once Precedex further lowered, if heart rate allow will consider increasing clonidine p.o.
- Increase as needed IV hydralazine dose up to 10 mg
Assessment
-
#1. Agitation with known history of nonverbal autism.
- Patient is afebrile. WBC minimally elevated on admission, normal today. Chest x-ray and abdominal ultrasound without any acute pathology. Urine analysis not suggestive of UTI. Urinary ketones likely related to decreased p.o. intake and
dehydration with prerenal failure on admission. Overall infectious workup has been negative.
- Per patient's mother at bedside, constipation, urinary retention or any sort of pain tends to cause similar changes in patient's mentation
- Psychiatry consult for further input. Clonazepam 1mg tid, Depakote 500 mg IV q8h, dosage being adjusted and Abilify increased to 5 mg tid
- Patient currently on Precedex infusion, continue to wean as tolerated. Precedex had been as high as @1. Also needed 4 point restraints.
- Check valproic acid level in AM
- Wean Precedex as tolerated
#2. Acute kidney injury on admission, suspect prerenal. Also ketones noted in the urine.
- NYDIA resolved, creatinine 0.9 now
- Continue Flomax for now
- Mild hypernatremia, resolved, 140 this AM.
- Patient's mother reported that his p.o. intake has been quite low over the last few days leading up to admission
- Monitor electrolytes, renal and liver function in addition to CBC and platelets in AM.
#3. HTN.
- Currently on clonidine 0.1 mg p.o. twice daily
- Start amlodipine 5 mg daily and titrate as needed
- Increase as needed IV hydralazine dose to 10 mg
DVT prophylaxis with Lovenox, 40 mg twice daily in view of patient's BMI of 74
Discussed with patient's mother at bedside. Discussed with psychiatrist on case.
Critical Care time 48 mins -- The patient is admitted for acute critical illness for the treatment of vital organ failure and/or prevention of further life-threatening conditions. Total care includes time spent in review of history, physical exam,
medications, hemodynamic/ventilator parameters, laboratory data, imaging and discussion with house staff, pharmacy, respiratory therapy, gate shear operator, and nursing.
Subjective Dataa
Subjective Data
Date of Service:
Date of Service: October 11, 2024
Subjective:
Patient comfortably lying in bed, in no acute distress. Appears mildly sedated. Intermittent agitation noted. Patient required 2 doses of as needed Ativan overnight.
Review of Systems
General: Other (Patient is nonverbal)
Objective Data
Data Reviewed
Vital Signs / I&O / Oxygen:
Vital Signs
Temp Pulse Resp BP Pulse Ox
98 F 47 21 182/107 96
10/11/24 12:00 10/11/24 13:15 10/11/24 13:15 10/11/24 12:14 10/11/24 13:25
Intake and Output
10/10/24 10/11/24 10/12/24
06:59 06:59 06:59
Intake Total 3170.9 / 3286.7 1571.3 / 1612.1 263.2 / 263.2
Output Total 1850 / 1850
Balance 3170.9 / 3286.7 -278.7 / -237.9 263.2 / 263.2
SaO2 96
Physical Exam
General: Comfortable
HEENT: Normocephalic
Cardiovascular: S1-S2
Respiratory: Clear
GI: Soft and Non Distended
Skin: Warm
Labs/Micro/Reports
Lab Data
10/10/24 05:23
10/11/24 05:17
[2024-10-11] MEDS: DEPAKENE 500 MG PO ×2 (15:34→23:30)
--- NOTE | 2024-10-11 17:00 | PTCARENOTE ---
Pt was given 2mg iv ativan prn for sitting straight up, and being anxious. 4 pt restraints remain on for pt safety. Pt talked to in a calm voice, and then did setting down and relax. BP greatly improving since this am, BP now running 155/83.
--- NOTE | 2024-10-11 17:00 | CM ---
senior business development manager reviewed patient's chart and met with patient and mother at bedside. Per patient's mother she had 5 children, triplets, older son and younger son, patient required some assist but is generally independent with ambulation using his
bariatric walker in home. Patient has Autism nonverbal, is able to sign with mother. Patient cannot use a w/c due to space in their apartment. Patient has services through [facility] and these services are through [facility] which will resume after
discharge, patient's plan is to return to home with his mother once he is stabilized, and less agitated.
PCP: Dr Rea
Pharmacy: [facility] in [place]
Plan; Home with mother and [facility] services that are in place when stable.
--- NOTE | 2024-10-11 21:00 | PTCARENOTE ---
Pt is Alert, nonverbal at baseline, communicates with mother through sign language, and will follow her commands. Anxious at times. Remains on precedex gtt, will wean as tolerated. 4point soft restraints are in use. Sinus tiffany 38-48 on monitor. RA,
lungs are clear. Pt has not has a BM in greater then 3 days, bowel regiment in place. Mother is at bedside, very involve in care.
[2024-10-11] MEDS: SENNA SYRUP PO (21:31)
[2024-10-12] VITALS (16 sets, daily range): BP systolic 141–183; BP diastolic 78–112
[2024-10-12] MEDS: APRESOLINE 10 MG IV (00:46)
[2024-10-12] MEDS: PRECEDEX 100 IV ×8 (02:14→23:16)
[2024-10-12 05:13] LABS: % Basophils 0.6 % (0-2); % Eosinophils 3.8 % (0-6); % Immature Granulocytes 0.4 % (0-0.5); % Lymphocytes 26.3 % (20.5-51.1); % Monocytes 12.3 % (1.7-9.3); % Neutrophils 56.6 % (42.2-75.2); Absolute Basophils 0.1 10^3/uL (0-0.2); Absolute Eosinophils 0.3 10^3/uL (0-0.7); Absolute Lymphocytes 2.2 10^3/uL (1.2-3.4); Absolute Monocytes 1.1 10^3/uL (0.1-0.6); Absolute Neutrophils 4.8 10^3/uL (1.4-6.5); Hematocrit 38.8 % (39.0-52.0); Hemoglobin 14.3 g/dL (13.0-18.0); Mean Corp Hgb Conc. 36.9 g/dL (33.0-37.0); Mean Corpuscular Hgb 31.7 pg (27.0-31.0); Mean Platelet Volume 9.8 fL (7.4-10.4); Nucleated Red Blood Cells % 0 % (-); Platelet Count 235 10^3/uL (130-400); Red Blood Cell Count 4.51 10^6/uL (4.70-6.10); Red Cell Dist. Width 12.7 % (11.5-14.5); White Blood Cell Count 8.5 10^3/uL (4.8-10.8)
[2024-10-12 05:29] LABS: ALT (SGPT) 46 U/L (0-50); AST (SGOT) 52 U/L (17-59); Albumin 3.3 g/dl (3.5-5.0); Alkaline Phosphatase 46 U/L (38-126); Blood Urea Nitrogen 11 mg/dl (9-20); Calcium 9.1 mg/dl (8.4-10.2); Carbon Dioxide 23 mmol/L (22-30); Chloride 108 mmol/L (98-107); Estimated Creatinine Clearance > 125 ml/min; Glucose 96 mg/dl (70-99); Potassium 3.7 mmol/L (3.5-5.1); Sodium 141 mmol/L (135-145); Total Bilirubin 3.4 mg/dl (0.2-1.3); Total Protein 5.9 g/dl (6.3-8.2); eGFR > 60.00
[2024-10-12] MEDS: ATIVAN 2 MG IV ×5 (05:39→23:15)
[2024-10-12 05:44] LABS: Depakane 85.2 ug/ml (50.0-120.0)
--- NOTE | 2024-10-12 05:52 | PTCARENOTE ---
Pt remained calm most of the night with the help of his mother by his side, RN was able to titrate Precedex down a little bit. Pt did require Ativan this morning after bath and blood work.
[2024-10-12] MEDS: ABILIFY 5 MG PO ×3 (07:19→22:31)
[2024-10-12] MEDS: CATAPRES 0.1 MG PO ×2 (07:20→19:42)
[2024-10-12] MEDS: COLACE LIQUID 100 MG PO ×2 (07:20→19:42)
[2024-10-12] MEDS: DEPAKENE 500 MG PO (07:21)
[2024-10-12] MEDS: FLOMAX 0.4 MG PO ×2 (07:21→19:41)
[2024-10-12] MEDS: KLONOPIN 1 MG PO ×3 (07:21→22:31)
[2024-10-12] MEDS: LOVENOX 40 MG SC ×2 (07:22→19:42)
[2024-10-12] MEDS: NORVASC 5 MG PO (07:23)
[2024-10-12] MEDS: MIRALAX 17 GRAMS PO (07:28)
[2024-10-12] MEDS: NSS (PRESERVATIVE FREE) 1 ML IV ×2 (08:40→23:15)
--- NOTE | 2024-10-12 09:00 | PTCARENOTE ---
Complete assessment done and documented. Dr Humphrey in to see pt and all labs and meds reviewed. Pt received on precedex drip at 1 mcg/kg/min. Pt has periods of anxiousness, sitting up, pulling leads off. Pt spoken to gently to help relax. All
morning meds crushed and given orally with syringe and water at pt's mom's request. Pt given oral care and CHG wash, mela care for urinary incontinence. Pt's mom remains in room for most of 24 hrs daily, all questions answered, and all care
explained. Pt's mother wanted all the cardiac leads to be taken off of pt b/c it bothers him. Leads were taken off for a few mins during care, but then immediately placed back on so the patient can be safely monitored while in critical care and on
precedex iv drip at 1 mcg/kg/min. Pt has periods when his HR is in the 30s. BP still sl elevated, but improving.
--- NOTE | 2024-10-12 09:19 | W.PN.INTV ---
Today's Communication / Plan
Recommendations
- Start thiamine IV daily
- If Precedex able to be weaned down, will increase clonidine to 3 times daily if heart rate allows
- Place midline and upper extremity for better IV access
- Increase activity as tolerated
- Monitor liver function test
Assessment
-
Patient is a 24-year-old gentleman with history of nonverbal autism who presented to the emergency room for evaluation of agitation. Patient is nonverbal and history is primarily obtained from patient's medical records as well as discussion with
mother at bedside. Patient lives with his mother. Reportedly had an episode of URI symptoms about 2 weeks ago and reportedly has not been himself since. Episodes of increasing agitation and occasionally being violent. In the emergency room
patient was noted to be quite agitated and received multiple medications including Ativan, Haldol as well as ketamine. He also underwent straight cath in the emergency room for urine sample and there is some report of decreased agitation after
that. Patient was originally admitted to IMU. Overnight due to increasing agitation, patient was transferred to ICU for consideration of Precedex infusion. Electric Deicer Assembler consult was requested for further input. Discussed with patient's mother at
bedside who reports that patient in 2023 had a prolonged hospitalization at [facility] for agitation and extensive workup was otherwise unremarkable. She also reports prior history of intubation and mechanical ventilation in the
setting of agitation.
10/12. Blood pressure 161/100, not needing any pressors. Saturating 95 to 98% on room air. Afebrile. Precedex infusing @ 1 currently
WBC count normal, 8.5. Stable hemoglobin and platelet count. Renal function panel, liver function panel and electrolytes essentially unremarkable. Total bilirubin mildly elevated at 3.4. Valproic acid level 85.2.
#1. Agitation with known history of nonverbal autism.
- Patient is afebrile. WBC minimally elevated on admission, normal today. Chest x-ray and abdominal ultrasound without any acute pathology. Urine analysis not suggestive of UTI. Urinary ketones likely related to decreased p.o. intake and
dehydration with prerenal failure on admission. Overall infectious workup has been negative.
- Per patient's mother at bedside, constipation, urinary retention or any sort of pain tends to cause similar changes in patient's mentation
- Psychiatry consult for further input. Clonazepam 1mg tid, Depakote 500 mg IV q8h, dosage being adjusted and Abilify increased to 5 mg tid
- Patient currently on Precedex infusion, continue to wean as tolerated. Precedex had been as high as @1. Also needed 4 point restraints.
- Valproic acid level 85.2 today.
- Wean Precedex as tolerated
#2. Acute kidney injury on admission, suspect prerenal. Also ketones noted in the urine.
- NYDIA resolved, creatinine 0.9 now
- Continue Flomax for now
- Mild hypernatremia, resolved, 140 this AM.
- Patient's mother reported that his p.o. intake has been quite low over the last few days leading up to admission
- Monitor electrolytes, renal and liver function in addition to CBC and platelets in AM.
#3. HTN.
- Currently on clonidine 0.1 mg p.o. twice daily. In view of mild intermittent bradycardia, not titrating it further unless Precedex can be titrated down.
- Started amlodipine 5 mg daily and titrate as needed
- Increase as needed IV hydralazine dose to 10 mg
DVT prophylaxis with Lovenox, 40 mg twice daily in view of patient's BMI of 74
Discussed with patient's mother at bedside. Discussed with psychiatrist on case.
Critical Care time 48 mins -- The patient is admitted for acute critical illness for the treatment of vital organ failure and/or prevention of further life-threatening conditions. Total care includes time spent in review of history, physical exam,
medications, hemodynamic/ventilator parameters, laboratory data, imaging and discussion with house staff, pharmacy, respiratory therapy, manager neonatal, and nursing.
Subjective Dataa
Subjective Data
Date of Service:
Date of Service: October 12, 2024
Subjective:
Patient currently lying in bed, mildly sedated on Precedex.
Review of Systems
General: Other (Patient is nonverbal)
Objective Data
Data Reviewed
Vital Signs / I&O / Oxygen:
Vital Signs
Temp Pulse Resp BP Pulse Ox
99.5 F 68 41 161/100 95
10/12/24 07:00 10/12/24 07:23 10/12/24 05:35 10/12/24 07:23 10/12/24 01:00
Intake and Output
10/11/24 10/12/24 10/13/24
06:59 06:59 06:59
Intake Total 1571.3 / 1612.1 1021.2 / 1021.2
Output Total 1850 / 1850
Balance -278.7 / -237.9 1021.2 / 1021.2
SaO2 95
Physical Exam
General: Comfortable
HEENT: Normocephalic
Cardiovascular: S1-S2
Respiratory: Clear
GI: Soft and Non Distended
Skin: Warm
Labs/Micro/Reports
Lab Data
10/12/24 05:04
10/12/24 05:04
[2024-10-12] MEDS: THIAMINE INJECTION 200 MG IV (10:00)
--- NOTE | 2024-10-12 11:38 | W.PN.UPDATE ---
Update Note
Progress Note Update
Patient is presently asleep., did not wake him as he is non verbal.
Reviewed note by Dr. Castro and talked to RN. Unfortunately he is still easily agitated. Depakote level today is 85.[address] Castro wanted to increase to the level of 100-120 in attempt to help his agitation.
Consequently I will increase the dose of Depakene by 250 mg. and order another level.
Will be following through the department.
--- NOTE | 2024-10-12 12:00 | PTCARENOTE ---
Dr Enamorado in to see pt. Depakene doses increased, see mar. Levels this morning 85.2. Pt again cleaned for urinary incontinence, mela care done, and new covidian pads placed.
--- NOTE | 2024-10-12 14:00 | PTCARENOTE ---
Pt's L foot becoming sl edematous. Pt was going to have a PICC placed yesterday, but pt's mother changed her mind after IV team arrived, and did not want it placed anymore, afraid that it would hurt her son. Pt's mom was asked if she would be
agreeable to a mid line to safely administer his IV med and drips. Pt's mom agreed and R upper arm midline was placed with sterile technique by IV team. L foot int d/c'd and elevated. Pt now resting comfortably.
--- NOTE | 2024-10-12 14:25 | W.PN.HOSP.TC ---
Today's Communication/Plan
-
Monitor vital signs see plan
Wean Precedex as tolerated
Increased Depakene noted
cw Ativan as needed
Continue with clonidine, Abilify and Klonopin
Discussed with mother at bedside
Assessment / Plan
Assessment / Plan
General: Other (Obese 24y M currently sleeping / sedated.)
HEENT: Other (Thick neck. MMM.)
Respiratory: Clear; No Wheezes, Rales or Rhonchi
Cardiac: S1/S2 and Regular Rhythm; No Murmur
GI: Soft, Non Tender, Non Distended, Normal Bowel Sounds
Neuro: Sedated
Agitation
Non-Verbal Autism
Anxiety
- No evident / clear etiology for his agitation on work-up thus far.
Appears likely had some viral infection few weeks ago. Per mother at bedside, patient gets severely agitated with any infection
- Labs show mild NYDIA and are otherwise unremarkable. UA does not suggest infection.
- US shows gallstone - which has reportedly been present in the past. No GB wall thickening, fluid or other abnormalities.
- ? urinary retention given report of calming following straight cath.
Continue with bladder scan
doesn't appear had a kidney stone as RBC on UA was neg. dont think any further testing is needed as labs are improving
- Increase tamsulosin to BID.
- Follow bladder scan protocol and straight cath if needed. Would try to avoid Murray as he is very high risk for traumatic removal.
- Intensify bowel regimen as chronic IBS-C could be contributing to urinary issues.
- Follow for improvement in agitation / mood.
- Continue usual home meds + PRN Ativan, etc as needed for anxiety / agitation control. Persistent agitation now requiring Precedex. ICU monitoring. Psychiatry following. started on abilify, now increased to 5 mg 3 times daily. Also started on
Klonopin. Continue with clonidine. Wean Precedex .will also need further prn PO medication prior to dc which mother can use during agitation episodes
Depakote level today is 85.[address] Castro wanted to increase to the level of 100-120 in attempt to help his agitation.
Increased Depakote by psych by 250 10/12
sinus tiffany likely 2/2 sedation, wean precedex
Seizure Disorder
- Isolated petit mal seizure reported in his records.
- Takes VPA - but this is likely for mood.
HTN
no prior hx
agree with amlodipine
hydralazine prn
Mild hypernatremia
Monitor; resolved
Morbid Obesity due to excess calories
- Affects all aspects of care.
- Some studies / interventions may be limited due to his body habitus.
DVT Prophylaxis: Lovenox
Code Status: Full
I spent a total of 53 minutes with the patient or on the floor. More than 50% of this time involved counseling and coordination of care.
Anticipated Discharge: > 48 hours
Subjective/Interval History
-
Date of Service: October 12, 2024
Sedated
Objective Data
-
Labs:
Laboratory Results
10/12/24
05:04
WBC 8.5
Hgb 14.3
Hct 38.8 L
Plt Count 235
Sodium 141
Potassium 3.7
Chloride 108 H
Carbon Dioxide 23
BUN 11
Creatinine 0.8
Glucose 96
Calcium 9.1
Total Bilirubin 3.4 H
AST 52
ALT 46
Alkaline Phosphatase 46
Vital Signs:
Vital Signs
Temp Pulse Resp BP Pulse Ox
98.3 F 38 24 142/91 95
10/12/24 13:00 10/12/24 14:15 10/12/24 14:15 10/12/24 14:00 10/12/24 01:00
I&O
05/09/25 05/10/25 05/11/25
06:59 06:59 06:59
Intake Total 1571.3 / 1612.1 1021.2 / 1062.0 376.4 / 376.4
Output Total 1849 / 1849
Balance -278.7 / -237.9 1021.2 / 1062.0 376.4 / 376.4
--- NOTE | 2024-10-12 17:00 | PTCARENOTE ---
Pt becoming sl less restless, will begin to start weaning precedex drip, now decreased to 0.8 mcg/kg/min.
--- NOTE | 2024-10-12 18:00 | PTCARENOTE ---
CHG bath given, all linen changed, mela care done. Pt calm at the moment.
[2024-10-12] MEDS: DEPAKENE 750 MG PO (19:42)
--- NOTE | 2024-10-12 20:32 | PTCARENOTE ---
Pt received start of shift, HR SB on telemetry. Pt uncooperative, pulling off cardiac leads and trying to scoot out of bed. Stayed at bedside until pt calmed down. Father at bedside. Pt incontinent large amount urine. Hygiene provided, sheets
changed. 4 point restraints remain on. Precedex currently 0.8mcg
[2024-10-12] MEDS: DEPAKENE 250 MG PO (22:31)
[2024-10-12] MEDS: SENNA SYRUP 17.6 MG PO (22:31)
[2024-10-13] VITALS (8 sets, daily range): BP systolic 127–165; BP diastolic 88–126
--- NOTE | 2024-10-13 00:30 | PTCARENOTE ---
Precedex gtt remains on. PRN ativan - see MAR. Mother at bedside. Pt observed to be pocketing pills. Able to dislodge pills from cheek and pt consumed w/ extra water. No further change in assessment.
[2024-10-13] MEDS: PRECEDEX 100 IV ×2 (02:14→05:43)
[2024-10-13 05:30] LABS: % Basophils 0.5 % (0-2); % Eosinophils 5.7 % (0-6); % Immature Granulocytes 0.6 % (0-0.5); % Lymphocytes 32.7 % (20.5-51.1); % Monocytes 10.4 % (1.7-9.3); % Neutrophils 50.1 % (42.2-75.2); Absolute Eosinophils 0.5 10^3/uL (0-0.7); Absolute Immature Granulocytes 0.1 10^3/uL (0-0.05); Absolute Lymphocytes 2.6 10^3/uL (1.2-3.4); Absolute Monocytes 0.8 10^3/uL (0.1-0.6); Absolute Neutrophils 3.9 10^3/uL (1.4-6.5); Hematocrit 39.3 % (39.0-52.0); Mean Corp Hgb Conc. 35.6 g/dL (33.0-37.0); Mean Corpuscular Hgb 31.5 pg (27.0-31.0); Mean Corpuscular Volume 88.5 fL (80.0-94.0); Mean Platelet Volume 9.8 fL (7.4-10.4); Nucleated Red Blood Cells % 0 % (-); Platelet Count 239 10^3/uL (130-400); Red Blood Cell Count 4.44 10^6/uL (4.70-6.10); Red Cell Dist. Width 12.7 % (11.5-14.5); White Blood Cell Count 7.9 10^3/uL (4.8-10.8)
[2024-10-13 05:44] LABS: ALT (SGPT) 40 U/L (0-50); AST (SGOT) 38 U/L (17-59); Albumin 3.5 g/dl (3.5-5.0); Alkaline Phosphatase 49 U/L (38-126); Blood Urea Nitrogen 13 mg/dl (9-20); Calcium 8.9 mg/dl (8.4-10.2); Carbon Dioxide 25 mmol/L (22-30); Chloride 107 mmol/L (98-107); Estimated Creatinine Clearance > 125 ml/min; Glucose 92 mg/dl (70-99); Potassium 3.7 mmol/L (3.5-5.1); Sodium 143 mmol/L (135-145); Total Bilirubin 2.7 mg/dl (0.2-1.3); eGFR > 60.00
--- NOTE | 2024-10-13 06:32 | PTCARENOTE ---
Precedex remains on. Pt incontinent x1 moderate amount. Hygiene provided, linens changed. No further change in assessment
[2024-10-13] MEDS: ATIVAN 2 MG IV (07:57)
[2024-10-13] MEDS: ABILIFY 5 MG PO ×2 (08:00→15:34)
[2024-10-13] MEDS: CATAPRES 0.1 MG PO (08:00)
[2024-10-13] MEDS: THIAMINE INJECTION 200 MG IV (08:01)
[2024-10-13] MEDS: FLOMAX 0.4 MG PO (08:02)
[2024-10-13] MEDS: LOVENOX 40 MG SC (08:02)
[2024-10-13] MEDS: NORVASC 5 MG PO (08:02)
[2024-10-13] MEDS: COLACE LIQUID 100 MG PO (08:03)
[2024-10-13] MEDS: KLONOPIN 1 MG PO ×2 (08:03→15:30)
[2024-10-13] MEDS: DEPAKENE 750 MG PO (08:03)
[2024-10-13] MEDS: MIRALAX 17 GRAMS PO (08:03)
--- NOTE | 2024-10-13 10:06 | W.PN.INTV ---
Today's Communication / Plan
Recommendations
- Continue to wean Precedex as tolerated
- Increase activity as tolerated
- Add Senokot, 2 tablets nightly, continue MiraLAX
Assessment
-
Patient is a 24-year-old gentleman with history of nonverbal autism who presented to the emergency room for evaluation of agitation. Patient is nonverbal and history is primarily obtained from patient's medical records as well as discussion with
mother at bedside. Patient lives with his mother. Reportedly had an episode of URI symptoms about 2 weeks ago and reportedly has not been himself since. Episodes of increasing agitation and occasionally being violent. In the emergency room
patient was noted to be quite agitated and received multiple medications including Ativan, Haldol as well as ketamine. He also underwent straight cath in the emergency room for urine sample and there is some report of decreased agitation after
that. Patient was originally admitted to IMU. Overnight due to increasing agitation, patient was transferred to ICU for consideration of Precedex infusion. Metabolic Specialist consult was requested for further input. Discussed with patient's mother at
bedside who reports that patient in 2023 had a prolonged hospitalization at [facility] for agitation and extensive workup was otherwise unremarkable. She also reports prior history of intubation and mechanical ventilation in the
setting of agitation.
#1. Agitation with known history of nonverbal autism.
- Patient is afebrile. WBC minimally elevated on admission, normal today. Chest x-ray and abdominal ultrasound without any acute pathology. Urine analysis not suggestive of UTI. Urinary ketones likely related to decreased p.o. intake and
dehydration with prerenal failure on admission. Overall infectious workup has been negative.
- Per patient's mother at bedside, constipation, urinary retention or any sort of pain tends to cause similar changes in patient's mentation
- Psychiatry consult for further input. Clonazepam 1mg tid, Depakene TID, dosage being adjusted and Abilify increased to 5 mg tid
- Patient currently on Precedex infusion, continue to wean as tolerated. Precedex had been as high as @1. Also needed 4 point restraints.
- Valproic acid level 85.2, bilirubin minimally elevated
- Wean Precedex as tolerated
#2. Acute kidney injury on admission, suspect prerenal. Also ketones noted in the urine.
- NYDIA resolved, creatinine 0.9 now
- Continue Flomax for now
- Mild hypernatremia, resolved, 143 this AM.
- Patient's mother reported that his p.o. intake has been quite low over the last few days leading up to admission
- Monitor electrolytes
#3. HTN.
- Currently on clonidine 0.1 mg p.o. twice daily. In view of mild intermittent bradycardia, not titrating it further unless Precedex can be titrated down.
- Started amlodipine 5 mg daily and titrate as needed
- Increase as needed IV hydralazine dose to 10 mg
DVT prophylaxis with Lovenox, 40 mg twice daily in view of patient's BMI of 74
Discussed with patient's mother at bedside. Discussed with psychiatrist on case.
Critical Care time 42 mins -- The patient is admitted for acute critical illness for the treatment of vital organ failure and/or prevention of further life-threatening conditions. Total care includes time spent in review of history, physical exam,
medications, hemodynamic/ventilator parameters, laboratory data, imaging and discussion with house staff, pharmacy, respiratory therapy, brick unloader tender, and nursing.
Subjective Dataa
Subjective Data
Date of Service:
Date of Service: October 13, 2024
Subjective:
Patient comfortably lying in bed. Appears to be little more awake and calm today.
Review of Systems
General: Other (Underlying nonverbal autism)
Objective Data
Data Reviewed
Vital Signs / I&O / Oxygen:
Vital Signs
Temp Pulse Resp BP Pulse Ox
97.4 F 68 28 165/98 98
10/13/24 08:00 10/13/24 09:35 10/13/24 09:35 10/13/24 09:35 10/13/24 09:35
Intake and Output
10/12/24 10/13/24 10/14/24
06:59 06:59 06:59
Intake Total 1021.2 / 1062.0 1183.9 / 1534.1 610.6 / 610.6
Balance 1021.2 / 1062.0 1183.9 / 1534.1 610.6 / 610.6
SaO2 98
Physical Exam
General: Comfortable
HEENT: Normocephalic
Cardiovascular: S1-S2
Respiratory: Clear
GI: Soft and Non Distended
Skin: Warm
Labs/Micro/Reports
Lab Data
10/13/24 05:16
10/13/24 05:17
--- NOTE | 2024-10-13 10:38 | PTCARENOTE ---
Update with site head and hospitalist team. Continue to coordinate cares with patient mother Presedex off at this time will follow
--- NOTE | 2024-10-13 10:47 | PTCARENOTE ---
Update with mom and fiber picker. In and out of bed to chair one person assist supervise. Update fiber picker Monitor off patient keeps removing and pulling equipt. Vitals in chair. 67nsr, bp 156/95(forearm bp), resting ini chair with mother. Aware of
risks and concerns continue mobility, psoitive reinforcement and supportive cares.
--- NOTE | 2024-10-13 13:02 | PTCARENOTE ---
Assumed care of patient. Patient is off precedex and has been since 0900. He is off monitor, ok with physician, Dr. Humphrey. He is sitting in chair with his mother at his side. Patient is non verbal, able to be redirected by mother. Off monitor,
on room air. Patient prefers to be nude. Plan per family and Dr. Johnson is to get patient off precedex, maintain off medication, check depakene level tomorrow morning for dosing and then discharge home.
--- NOTE | 2024-10-13 13:19 | W.PN.HOSP.TC ---
Addendum entered and electronically signed by Des Johnson MD 10/13/24 15:04:
Discussed with psychiatry. Patient is markedly doing better after weaning off Precedex today. Vital signs and oxygenation has been stable. Mother wants to take patient home. Per psychiatry Depakene level early next week with primary
psychiatrist. Mother is aware of all the medication changes.
Time of discharge 38 minutes
Original Note:
Today's Communication/Plan
-
Monitor vital signs and see plan
Depakene level in a.m.
Psychiatry following
Continue with Klonopin, Depakene, Abilify, clonidine
Continue amlodipine
Laxatives
Wean Precedex, if remains off and patient is calm and has not required higher dose of sedatives then likely can be transferred if okay with psychiatry and cleaner and dyer
Assessment / Plan
Assessment / Plan
General: obese
HEENT: Other (Thick neck. MMM.)
Respiratory: Clear; No Wheezes, Rales or Rhonchi
Cardiac: S1/S2 and Regular Rhythm,bradycardia
GI: Soft, Non Tender, Non Distended, Normal Bowel Sounds
Neuro: intermittent agitation
Agitation
Non-Verbal Autism
Anxiety
- No evident / clear etiology for his agitation on work-up thus far.
Appears likely had some viral infection few weeks ago. Per mother at bedside, patient gets severely agitated with any infection
- Labs show mild NYDIA and are otherwise unremarkable. UA does not suggest infection.
- US shows gallstone - which has reportedly been present in the past. No GB wall thickening, fluid or other abnormalities.
- ? urinary retention given report of calming following straight cath.
Continue with bladder scan
doesn't appear had a kidney stone as RBC on UA was neg. dont think any further testing is needed as labs are improving
- Increase tamsulosin to BID.
- Follow bladder scan protocol and straight cath if needed. Would try to avoid Murray as he is very high risk for traumatic removal.
- Intensify bowel regimen as chronic IBS-C could be contributing to urinary issues.
- Follow for improvement in agitation / mood.
Persistent agitation now requiring Precedex. ICU monitoring. Psychiatry following. precedex turned off 10/13, will need to closely monitor. Psychiatry is following and is titrating medications. Currently on Abilify, Klonopin, clonidine,
Depakene. Plan for repeat Depakene level tomorrow .will also need further prn PO medication prior to dc which mother can use during agitation episodes
Depakote level is 85.[address] Castro wanted to increase to the level of 100-120 in attempt to help his agitation.
Increased Depakote by psych by 250 10/12
sinus tiffany likely 2/2 sedation, wean precedex
Seizure Disorder
- Isolated petit mal seizure reported in his records.
- Takes VPA - but this is likely for mood.
HTN
no prior hx
agree with amlodipine
hydralazine prn
Mild hypernatremia
Monitor; resolved
Morbid Obesity due to excess calories
- Affects all aspects of care.
- Some studies / interventions may be limited due to his body habitus.
DVT Prophylaxis: Lovenox
Code Status: Full
Anticipated Discharge: 24 - 48 hours
Subjective/Interval History
-
Date of Service: October 13, 2024
get agitated at times
Objective Data
-
Labs:
Laboratory Results
10/13/24 10/13/24
05:16 05:17
WBC 7.9
Hgb 14.0
Hct 39.3
Plt Count 239
Sodium 143
Potassium 3.7
Chloride 107
Carbon Dioxide 25
BUN 13
Creatinine 0.9
Glucose 92
Calcium 8.9
Total Bilirubin 2.7 H
AST 38
ALT 40
Alkaline Phosphatase 49
Vital Signs:
Vital Signs
Temp Pulse Resp BP Pulse Ox
98.4 F 68 28 150/93 98
10/13/24 11:21 10/13/24 09:35 10/13/24 09:35 10/13/24 10:00 10/13/24 09:35
I&O
10/12/24 10/13/24 10/14/24
06:59 06:59 06:59
Intake Total 1021.2 / 1062.0 1183.9 / 1534.1 850.6 / 850.6
Balance 1021.2 / 1062.0 1183.9 / 1534.1 850.6 / 850.6
--- NOTE | 2024-10-13 14:16 | W.PN.UPDATE ---
Update Note
Progress Note Update
Met with pt's mom, Georgette, discussed with nursing staff. Pt was sleeping and is nonverbal.
Pt has been weaned off Precedex without problems, though is still sleeping more than usual.
His Depakote level was 85.2, and dose was increased yesterday by 25 mg. This level is within normal range.
Pt has not had further aggressive outbursts and mom is comfortable taking him home.
Depakote level can be checked as an outpatient.
--- NOTE | 2024-10-13 15:03 | W.DCSUMMARY ---
Discharge Summary
Discharge Data
Date of Admission: 10/08/24
Date of Discharge: 10/13/24
-
Pending Results: No
Hospital Course
24-year-old male with past medical history of seizure disorder, hypertension, morbid obesity, nonverbal autism with agitation, anxiety came to the hospital with acute agitation and anxiety secondary to autism. Patient was seen by psychiatry
throughout hospitalization. Initially patient required aggressive sedation and was later placed on Precedex with ICU monitoring. Psychiatry continue to manage his medications. His Depakene was also increased on this hospitalization and on
discharge was instructed to get Depakene level soon outpatient with psychiatry. Patient mental status was challenging given his nonverbal autism. Infectious causes was initially entertained however all the workup was negative and patient symptoms
continue to improve without any antibiotic treatment. Once his agitation continue to improve and he was able to be weaned off Precedex, per psychiatry recommendation patient was discharged home with instructions to follow-up closely with primary
care provider and psychiatry outpatient.
Discharge Plan
-
Patient Disposition: Home (Routine Discharge)
Discharge Diagnosis/Procedures: Agitation
Non-Verbal Autism
Anxiety
Hypertension
Condition: Fair
Diet: As tolerated
Activity: With assistance and As tolerated
Driving Restrictions: No driving
Bathing Restrictions: None
Blood Work: Depakene level early next week with psychiatry
Activity Restrictions/Additional Instructions:
Follow-up with your psychiatrist in 1 to 2 days
Referrals:
UNKNOWN - PT DOES,NOT KNOW [Family Provider] - in less than 1 week
Prescriptions:
New
amlodipine 5 mg Tablet
5 mg PO DAILY Qty: 30 0RF
aripiprazole 5 mg Tablet
5 mg PO TID Qty: 30 0RF
Continued
melatonin 3 mg Tablet
3 mg PO DAILYPRN PRN (Reason: agitation)
sennosides [senna] 8.6 mg Tablet
8.6 mg PO DAILYPRN PRN (Reason: constipation)
clonidine HCl 0.1 mg Tablet
0.1 mg PO BID
polyethylene glycol 3350 [Miralax] 17 gram Powder In Packet
17 g PO DAILY
cod liver oil Capsule
1 cap PO DAILY
cyanocobalamin (vitamin B-12) 1,000 mcg Tablet
1,000 mcg PO DAILY
ascorbic acid (vitamin C) [Vitamin C] 500 mg Tablet
500 mg PO DAILY
lorazepam 2 mg Tablet
2 mg PO DAILYPRN PRN (Reason: anxiety)
ibuprofen [Advil] 200 mg Tablet
400 mg PO Q8HPRN PRN (Reason: mild pain)
docusate sodium [Colace] 100 mg Capsule
100 mg PO DAILY
folic acid 1 mg Tablet
1 mg PO DAILY
cholecalciferol (vitamin D3) [Vitamin D3] 25 mcg (1,000 unit) Tablet
25 mcg PO DAILY
Changed
clonazepam 1 mg Tablet
1 mg PO TID Qty: 0 0RF
tamsulosin [Flomax] 0.4 mg Capsule
0.4 mg PO BID Qty: 60 0RF
valproic acid (as sodium salt) 250 mg/5 mL Solution
750 mg PO BID@0800,1200 Qty: 0 0RF
valproic acid (as sodium salt) 250 mg/5 mL Solution
250 mg PO HS Qty: 0 0RF
Discharge Orders:
Discharge Patient (As Directed); Ordered 10/13/24
Ordered By: Des Johnson
Discharge Date and Time
Print Language: BURUNDIAN
--- NOTE | 2024-10-13 16:06 | CM ---
MD entered order for discharge.
Called mom several time . Mom Vera did answer and she said she was ready for discharge with her son to home.
She said she will drive him home.She did not need transportation assistance.
Offered VN she declined she said she will set up respite care with [facility] this week.
PLAN Home no needs
[2024-10-14 14:32] LABS: Glucose - Point of Care 274 mg/dl (70-99)
== END 2024-10-13 15:30 | disposition home or self-care (01) | DRG 884 ==
LOC: ICU 08:18
PROVIDERS: Nurse Practitioner Family; Nurse Practitioner Primary Care; Psychiatry & Neurology Psychiatry; ADMITTING PHYSICIAN Hospitalist; ATTENDING PHYSICIAN Internal Medicine; CONSULT PHYSICIAN Internal Medicine; CONSULT PHYSICIAN Psychiatry & Neurology Psychiatry; EMERGENCY PHYSICIAN Emergency Medicine
DX: R45.1 Restlessness and agitation (principal); Z68.45 Body mass index [BMI] 70 or greater, adult; N17.9 Acute kidney failure, unspecified; F84.0 Autistic disorder; F41.9 Anxiety disorder, unspecified; I10 Essential (primary) hypertension; K59.00 Constipation, unspecified; E66.01 Morbid (severe) obesity due to excess calories; J45.909 Unspecified asthma, uncomplicated; K58.1 Irritable bowel syndrome with constipation; K80.20 Calculus of gallbladder without cholecystitis without obstruction; R33.9 Retention of urine, unspecified; E87.5 Hyperkalemia; E87.8 Other disorders of electrolyte and fluid balance, not elsewhere classified; F50.819 Binge eating disorder, unspecified
CPT/HCPCS: 51701; 51798; 71045; 74018; 76700; 80048; 80053; 80164; 81003; 81015; 82962; 83690; 84443; 85025; 85027; 93005; 94640; 96361; 96372; 96374; 96375; 99291; 99292